=== PATIENT | female | born 1945 | race Caucasian/White ===

== ENCOUNTER 2016-08-24 09:20 | Inpatient (IN) | payer OTHER ==
[2016-08-24] MEDS ORDERED: NS 500 ML IV ONE (09:31)
--- NOTE | 2016-08-24 09:35 | EDPHY ---
General - History Smoking Status: Never smoked Narrative: CHIEF COMPLAINT: Fall, hip pain HISTORY OF PRESENT ILLNESS: Patient reports falling twice last night. She does not know the full details of this. She fell once in the kitchen but did not lose conscious. She then said she fell somehow the bathroom but does not recall the details. She is amnestic to the details of the event leading up to the 2nd fall but does know she was laying in the bathroom for several hours. Her complaint is only right hip pain. She has no head or neck pain. She has no chest pain or shortness of breath. No back pain. No injuries to the arms of the left leg. The right hip pain is moderate to severe. Improves with rest. Too painful to even move the hip while lying supine. It radiates into the thigh. No numbness or tingling. No weakness below the hip. Patient has Parkinson's disease with chronic contractures of the hips and arms. She has no recollection of have any chest pain or dizziness prior to the fall but does not entirely know for sure REVIEW OF SYSTEMS: Ten systems reviewed and are negative unless otherwise noted in the HPI PERTINENT MEDICAL HISTORY: EXAMINATION General Appearance: Alert, no distress Head: normocephalic, atraumatic. No hematomas. No Mccullough sign or raccoon eyes. Eyes: Pupils equal and round, no conjunctival pallor or injection. EOMs intact. No nystagmus. ENT, Mouth: Mucous membranes moist. Uvula midline. No erythema edema. Neck: Normal inspection, supple, non-tender. No rigidity. No meningismus. No midline tenderness. Respiratory: Lungs are clear to auscultation. No wheezing, rhonchi or crackles. Cardiovascular: Regular rate and rhythm. No murmur. Pulses intact distally in symmetrically. Gastrointestinal: Abdomen is soft and nontender Neurological: A&O, nonfocal, strength is symmetric in all limbs. Sensory intact. Skin: Warm and dry, no rash. There is ecchymosis over the right hip and posterior thigh. No lacerations or abrasions. Extremities: Contractures in all 4 limbs reportedly baseline. Range of motion of the upper extremities and left lower extremity are at baseline. Right hip is significantly tender to palpation. It is shortened and rotated. Neurovascular intact distal to the hip. Range of motion not tested on the right hip due to pain. Psychiatric: Mood and affect normal DIFFERENTIAL DIAGNOSES: Including but not limited to syncope, intracranial hemorrhage, hip fracture, hip dislocation, rhabdomyolysis MDM: 9:35 a.m. Multiple falls last night of uncertain etiology. There is no witness to this and she is on certain of the exact details of the event. She did fall at least twice that she knows of. She laid on the bathroom floor for multiple hours from last night until this morning. Her spouse was unable to get up from the floor. She is awake and alert, conversing appropriately. She has no headache. Her primary complaint is right-sided hip pain. Given the questionable circumstances, I will obtain laboratory studies including CK, EKG, CT scans of the head, cervical spine and hip. I will also obtain a chest x-ray. She is in no acute distress and does not want any pain medication at this time. 10:[address] House that there is a displaced right hip fracture by CT scan. Chronic changes noted as well. Was also notified by Dr. Dunn that the CT scans of the head and cervical spine did not reveal any acute findings. There are chronic changes as noted. 10:40 a.m. I have updated the patient regarding the positive findings of the hip fracture as well as the negative findings on the CT scans and labs. I have discussed the case with the hospitalist, and she will be admitted to Dr. Shepherd. We have paged orthopedics for consultation. 10:50 a.m. I have discussed the case with Dr. Dumont. He asked if I felt the patient would be ready to be taken to the OR today or if she would need clearance. I feel that given her only history of Parkinson's she may be cleared for surgery today. She has been kept NPO. We will keep her NPO other than small sip of water for her scheduled parkinsonian medications. Dr. Dumont will provide consultation. SUPERVISION: This patient was independently evaluated without direct examination by the attending physician. Case was discussed with attending physician. Ortho consultation Hospitalist admission (Ritchie Whitten) Medical Decision Making: The patient was evaluated and managed by the physician assistant auto center manager. I have reviewed this chart and I agree with the findings and plan of care as documented , as indicated by my signature. I am the secondary supervising physician. ( Tennille Winchester) - Objective Vital Signs: Initial Vital Signs Temperature (C) 36.8 C 04/06/17 09:20 Heart Rate 84 08/24/16 09:20 Respiratory Rate 18 08/24/16 09:20 Blood Pressure 133/71 H 08/24/16 09:20 O2 Sat (%) 96 08/24/16 09:20 O2 Delivery Mode Room Air Allergies/Adverse Reactions: Sulfa (Sulfonamide Antibiotics) Allergy (Verified 05/30/15 19:48) Home Medications: Medication Instructions Recorded Cholecalciferol Vit D3 [Vitamin D3 2,000 units PO DAILY 05/30/15 2000 units tab (OTC)] Herbals/Supplements -Info Only 1 ea PO DAILY 05/30/15 cloZAPine [Clozaril (*)] 25 mg PO BID 05/30/15 rOPINIRole HCL [Ropinirole ER] 3 mg PO BID@,12 05/30/15 Carbidopa/Levo Cr 25/100Mg 1 tab PO .X5D@08,11,14,17,21 09/19/15 [Sinemet CR 25/100 MG (*)] rOPINIRole HCL [Ropinirole ER] 2 mg PO HS 08/24/16 Laboratory Results: Laboratory Results 08/24/16 09:20 08/24/16 09:20 Medications Given: Discontinued Medications Carbidopa/Levodopa (Sinemet Cr) 1 tab PO 5XD ISMAEL Stop: 02/20/17 15:29 Last Admin: 08/25/16 05:45 Dose: Not Given Sodium Chloride (Ns) 500 mls @ 0 mls/hr IV ONCE ONE PRN Reason: Wide Open Stop: 08/24/16 09:32 Last Admin: 08/24/16 10:18 Dose: 500 mls Potassium Chloride/Dextrose/Sod Cl (D5w 1/2 Ns W/ 20 Kcl/L) 1,000 mls @ 125 mls /hr IV CONT ISMAEL Stop: 02/20/17 15:29 Last Admin: 08/24/16 22:20 Dose: 1,000 mls Ropivacaine 80 mg/ Epinephrine HCl 0.2 mg/ Ketorolac Tromethamine 30 mg/ Morphine Sulfate 10 mg/ IV Miscellaneous Supplies 42.2 mls @ 0 mls/hr IU ONCALL ONE PRN Reason: As Directed Stop: 08/24/16 18:01 Last Admin: 08/24/16 22:32 Dose: Not Given Cefazolin Sodium/Dextrose (Ancef 2 Gm (Premix)) 100 mls @ 200 mls/hr IV ONCALL ONE Stop: 08/24/16 18:29 Last Admin: 08/24/16 22:13 Dose: Not Given Cefazolin Sodium/Dextrose (Ancef 1 Gm (Premix)) 50 mls @ 200 mls/hr IV Q8H ISMAEL PRN Reason: Protocol Stop: 08/25/16 10:14 Last Admin: 08/25/16 11:00 Dose: 50 mls Sodium Chloride (Ns) 500 mls @ 1,500 mls/hr IV ONCE ONE Stop: 08/25/16 10:29 Last Admin: 08/25/16 11:19 Dose: 500 mls Sodium Chloride (Ns) 500 mls @ 0 mls/hr IV ONCE ONE PRN Reason: As Directed Stop: 08/25/16 19:31 Last Admin: 08/25/16 19:47 Dose: 500 mls Morphine Sulfate (Morphine) 2 mg IVP EDNOW ONE Stop: 08/24/16 10:42 Last Admin: 08/24/16 10:49 Dose: 2 mg Naloxone HCl (Narcan) 0.2 mg IVP ONCE ONE Stop: 08/24/16 23:46 Last Admin: 08/24/16 23:45 Dose: 0.2 mg Tramadol HCl (Ultram) 50 mg PO Q6HRS ISMAEL Stop: 02/21/17 00:00 Last Admin: 08/25/16 05:45 Dose: Not Given Departure - Departure Disposition: [facility] Acute Condition: Good
[2016-08-24 09:37] LABS: % IMMATURE GRANULYOCYTES 0.4 % (0.0-1.1); ABSOLUTE IMMATURE GRANULOCYTES 0.05 10^3/uL (0.00-0.10); ADD DIFF? NO; ADD MORPH? NO; ADD SCAN? NO; ATYPICAL LYMPHOCYTE FLAG 0 (0-99); FRAGMENT RBC FLAG 0 (0-99); HEMATOCRIT 39.4 % (38.0-47.0); LEFT SHIFT FLG 0 (0-99); LIPEMIA HEMOLYSIS FLAG 80 (0-99); MEAN CELL HEMOGLOBIN 29.6 pg (27.9-34.1); MEAN CELL VOLUME 89.7 fL (81.5-99.8); MEAN PLATELET VOLUME 10.9 fL (8.7-11.7); PLATELET CLUMPS FLAG 0 (0-99); PLATELET COUNT 176 10^3/uL (150-400); RED BLOOD CELL COUNT 4.39 10^6/uL (4.18-5.33); RED CELL DISTRIBUTION WIDTH 13.4 % (11.5-15.2)
--- NOTE | 2016-08-24 09:44 | CPEKG ---
Heart Rate: 83 RR Interval: 723 P-R Interval: 172 QRSD Interval: 88 QT Interval: 384 QTC Interval: 452 P Nikolski: 64 QRS Nikolski: 31 T Wave Nikolski: 67 EKG Severity - BORDERLINE ECG - EKG Impression: SINUS RHYTHM EKG Impression: BORDERLINE R WAVE PROGRESSION, ANTERIOR LEADS Electronically Signed By: Tennille Winchester 24-Aug-2016 15:41:17
[2016-08-24 09:49] LABS: ANION GAP 13 mEq/L (8-16); CALCIUM 9.4 mg/dL (8.5-10.4); CARBON DIOXIDE 26 mEq/l (22-31); CHLORIDE 104 mEq/L (97-110); CREATININE 0.7 mg/dL (0.6-1.0); GLOMERULAR FILTRATION RATE > 60; GLUCOSE 114 mg/dL (70-100); INR 1.1 (0.83-1.16); POTASSIUM 3.6 mEq/L (3.5-5.2); PROTIME(PATIENT) 14.1 SEC (12.0-15.0); SODIUM 143 mEq/L (134-144)
[2016-08-24 09:50] LABS: APTT 24.1 SEC (23.0-38.0)
[2016-08-24 10:00] LABS: TROPONIN I < 0.012 ng/mL (0-0.034)
--- NOTE | 2016-08-24 14:51 | PDGENHP ---
History and Physical - Chief Complaint right hip pain - History of Present Illness 71 y/o female with Parkinsons presents to ED today with right hip pain after falling yesterday. She has been Unable to bear weight since the fall. She reports severe pain in her right hip with any kind of movement. Her reports that she fell last night in the kitchen and could not stand up on her own. Her states that she was conscious immediately after the fall when he found her, he does not believe that she hit her head . Patient does not recall the event. Later that evening her states he had to carry her to and from the bathroom and that she had 1 episode of bowel incontinence. Initially she complained of full body pain, this morning it is isolated to the right hip. Her brought her to the ED do to worsening Pain in her hip and. She uses a walker for mobility. She denies numbness or weakness in her right leg. History Information - Allergies/Home Medication List Allergies/Adverse Reactions: Sulfa (Sulfonamide Antibiotics) Allergy (Verified 05/30/15 19:48) Home Medications: Cholecalciferol Vit D3 [Vitamin D3 2000 units tab (OTC)] 2,000 units PO DAILY [Last Taken 08/23/16] Herbals/Supplements -Info Only 1 ea PO DAILY 05/30/15 [Last Taken Unknown] cloZAPine [Clozaril (*)] 25 mg PO BID 05/30/15 [Last Taken 08/24/16] rOPINIRole HCL [Ropinirole ER] 3 mg PO BID@09,12 05/30/15 [Last Taken 08/24/16 09:00] Carbidopa/Levo Cr 25/100Mg [Sinemet CR 25/100 MG (*)] 1 tab PO .X5D@08,11,14,17, 21 09/19/15 [Last Taken 08/24/16 08:00] rOPINIRole HCL [Ropinirole ER] 2 mg PO HS 08/24/16 [Last Taken 08/23/16] I have personally reviewed and updated: family history, medical history, social history, surgical history - Past Medical History Additional medical history: Parkinsons Disease on Clozaril for hallucinations, orthostatic hypotension, osteoporosis - Surgical History Reports: hysterectomy (Total) Additional surgical history: knee arthroscopy - Social History Smoking Status: Never smoked Alcohol Use: Occasionally Drug Use: None Review of Systems ROS: 10pt was reviewed & negative except for what was stated in HPI & below Genitourinary: Reports: frequency, urgency. Denies: pain Physical Exam Temp Pulse Resp BP Pulse Ox 36.6 C 86 16 138/78 H 94 08/24/16 12:35 08/24/16 12:35 08/24/16 12:35 08/24/16 12:35 08/24/16 12:35 Constitutional: no apparent distress, appears nourished, not in pain Eyes: PERRL, anicteric sclera, EOMI Ears, Nose, Mouth, Throat: moist mucous membranes, hearing normal, ears appear normal, no oral mucosal ulcers Cardiovascular: regular rate and rhythym, no murmur, rub, or gallop, No edema Respiratory: no respiratory distress, no rales or rhonchi, clear to auscultation Gastrointestinal: normoactive bowel sounds, soft, non-tender abdomen, no palpable masses, No guarding, No rebound Genitourinary: no bladder fullness, no bladder tenderness Skin: warm, normal color, no rashes or abrasions, no fluctuance, no induration, No mottled Musculoskeletal: other ( right lower extremity is held in external rotation) Neurologic: AAOx3, CN II-XII Intact, No facial droop Psychiatric: interacting appropriately, not anxious, not encephalopathic, thought process linear Lab Data & Imaging Review 08/24/16 09:20 08/24/16 09:20 WBC 11.26 10^3/uL (3.80-9.50) H 08/24/16 09:20 RBC 4.39 10^6/uL (4.18-5.33) 08/24/16 09:20 Hgb 13.0 g/dL (12.6-16.3) 08/24/16 09:20 Hct 39.4 % (38.0-47.0) 08/24/16 09:20 MCV 89.7 fL (81.5-99.8) 08/24/16 09:20 MCH 29.6 pg (27.9-34.1) 08/24/16 09:20 MCHC 33.0 g/dL (32.4-36.7) 08/24/16 09:20 RDW 13.4 % (11.5-15.2) 08/24/16 09:20 Plt Count 176 10^3/uL (150-400) 08/24/16 09:20 MPV 10.9 fL (8.7-11.7) 08/24/16 09:20 Neut % (Auto) 85.4 % (39.3-74.2) H 08/24/16 09:20 Lymph % (Auto) 8.3 % (15.0-45.0) L 08/24/16 09:20 Schuyler % (Auto) 4.7 % (4.5-13.0) 08/24/16 09:20 Eos % (Auto) 0.8 % (0.6-7.6) 08/24/16 09:20 Baso % (Auto) 0.4 % (0.3-1.7) 08/24/16 09:20 Nucleat RBC Rel Count 0.0 % (0.0-0.2) 08/24/16 09:20 Absolute Neuts (auto) 9.61 10^3/uL (1.70-6.50) H 08/24/16 09:20 Absolute Lymphs (auto) 0.93 10^3/uL (1.00-3.00) L 08/24/16 09:20 Absolute Monos (auto) 0.53 10^3/uL (0.30-0.80) 08/24/16 09:20 Absolute Eos (auto) 0.09 10^3/uL (0.03-0.40) 08/24/16 09:20 Absolute Basos (auto) 0.05 10^3/uL (0.02-0.10) 08/24/16 09:20 Absolute Nucleated RBC 0.00 10^3/uL (0-0.01) 08/24/16 09:20 Immature Gran % 0.4 % (0.0-1.1) 08/24/16 09:20 Immature Gran # 0.05 10^3/uL (0.00-0.10) 08/24/16 09:20 PT 14.1 SEC (12.0-15.0) 08/24/16 09:20 INR 1.10 (0.83-1.16) 08/24/16 09:20 APTT 24.1 SEC (23.0-38.0) 08/24/16 09:20 Sodium 143 mEq/L (134-144) 08/24/16 09:20 Potassium 3.6 mEq/L (3.5-5.2) 08/24/16 09:20 Chloride 104 mEq/L (97-110) 08/24/16 09:20 Carbon Dioxide 26 mEq/l (22-31) 08/24/16 09:20 Anion Gap 13 mEq/L (8-16) 08/24/16 09:20 BUN 11 mg/dL (7-23) 08/24/16 09:20 Creatinine 0.7 mg/dL (0.6-1.0) 08/24/16 09:20 Estimated GFR > 60 08/24/16 09:20 Glucose 114 mg/dL (70-100) H 08/24/16 09:20 Calcium 9.4 mg/dL (8.5-10.4) 08/24/16 09:20 Creatine Kinase 156 IU/L (0-156) 08/24/16 09:20 Troponin I < 0.012 ng/mL (0-0.034) 08/24/16 09:20 Imaging Review: hip ct reviewed Impression: Displaced right femoral neck fracture. This has a subacute appearance with loss of a lot of the bone in the femoral neck with sclerosis and irregularity. Visualized and Interpreted Chest x-ray results: Yes Chest X-Ray results: no infiltrate, normal Visualized and Interpreted EKG results: Yes EKG Interpretation: Positive for: normal sinsus rhythm (83 bpm) Assessment & Plan Assessment: This is a 71 y/o female with history of Parkinson's Disease presenting with R hip pain after fall. # Right femoral neck fracture - Dr. Dumont plans to take the patient to the operating room later today # urinary frequency and urgency in the setting of Parkinson's disease and recent fall - obtain urinalysis # Parkinson's disease - Follow up with Dr. Jennifer Suárez at [facility] for disease management and neurological evaluation as pt has history of auditory and visual hallucinations that may have contributed to her fall. # Osteoporosis - Monitor bone density, encourage use of walker for mobility, follow up with PCP Dr. Bonnie Zepeda # Elevated WBC - obtain UA and monitor for signs of infection admitted inpatient status given hip fracture and need for surgery. I suspect she will need placement in a [facility] facility for rehabilitation postoperatively. She is high risk for VTE and will start low molecular weight heparin postoperatively.
[2016-08-24] MEDS ORDERED: oxyCODONE IR 5 MG TAB PO PRN (15:23)
[2016-08-24] MEDS ORDERED: ONDANSETRON 4 MG/2 ML VIAL IVP PRN (15:23)
[2016-08-24] MEDS ORDERED: CARBIDOPA/LEVO CR 25 MG/100 MG TAB PO SCH (15:30)
[2016-08-24] MEDS: D5W 1/2 NS W/ 20 KCl/L 1,000 ML IV SCH ×2 (16:30→22:20)
[2016-08-24] MEDS ORDERED: CALCIUM CHLORIDE 1 GM/10 ML INJ ONE (16:57)
[2016-08-24] MEDS ORDERED: BUPIVACAINE/EPI 0.5% 30 ML SDV ONE (16:57)
[2016-08-24] MEDS ORDERED: THROMBIN (BOVINE) 5,000 UNIT VIAL TP ONE (16:57)
[2016-08-24] MEDS ORDERED: POLYMYXIN B SULFATE 500,000 UNIT/10 ML SYR IRR ONE (16:58)
[2016-08-24] MEDS ORDERED: BACITRACIN 50,000 UNITS/10 ML SYR IRR ONE (16:58)
[2016-08-24] MEDS ORDERED: PROPOFOL 200 MG/20 ML VIAL ONE ×2 (17:02→18:34)
[2016-08-24] MEDS ORDERED: fentaNYL 100 MCG/2 ML INJ ONE ×2 (17:03→18:43)
[2016-08-24 17:20] LABS: COLOR YELLOW; LEUKOCYTE ESTERASE,URINE NEGATIVE (NEGATIVE); NITRITE,URINE NEGATIVE (NEGATIVE)
[2016-08-24] MEDS ORDERED: DEXAMETHASONE 4 MG/ML VIAL ONE (17:44)
[2016-08-24] MEDS ORDERED: CEFAZOLIN 2 GM/DEXTROSE/100 ML BAG IV ONE (17:44)
[2016-08-24] MEDS ORDERED: PHENYLEPHRINE 10 MG/ML SDV ONE (17:50)
[2016-08-24] MEDS ORDERED: ROPI/epiNEPH/KETOROLAC/morphINE JOINT COCKTAIL IU ONE (18:00)
[2016-08-24] MEDS ORDERED: ceFAZolin 2 GM/DEXTROSE 100 ML IV ONE (18:00)
[2016-08-24] MEDS ORDERED: ONDANSETRON 4 MG/2 ML VIAL ONE (19:03)
[2016-08-24] MEDS ORDERED: TEMAZEPAM 15 MG CAP PO PRN (19:44)
--- NOTE | 2016-08-24 19:44 | POSTOPPROG ---
Post Op Note Date of Operation: 08/24/16 Surgeon: Cami Dumont Anesthesiologist: hermila Anesthesia: LMA Pre-op Diagnosis: r hip fx Procedure: r hip anton-arthroplasty with fluoro Inf/Abcess present in the surg proc area at time of surgery?: No Depth: Deep Incisional (Fascial) EBL: 100-500
[2016-08-24] MEDS ORDERED: TAPENTADOL HCL 50 MG TAB PO PRN (19:47)
[2016-08-24] MEDS ORDERED: ROPINIROLE HCL 2 MG PO SCH (21:00)
--- NOTE | 2016-08-24 21:07 | GOP ---
[f rep st] OPERATIVE REPORT DATE OF OPERATION: 08/24/2016 SURGEON: Cami Dumont MD ANESTHESIA: By LMA. PREOPERATIVE DIAGNOSIS: Right femoral neck fracture. POSTOPERATIVE DIAGNOSIS: Right femoral neck fracture. PROCEDURE PERFORMED: Right hip hemiarthroplasty with fluoroscopy. FINDINGS: INDICATIONS: A 71-year-old female who had fallen at home. She was seen in the emergency room, diag nosed with a femoral neck fracture. She was brought to the operating room as soon as she was medica lly cleared. DESCRIPTION OF PROCEDURE: Patient brought to the operating room after the right side had been ident ified as correct side by the patient, nurse, physician. Once in the operating room, she was placed under general anesthesia using an LMA. Once asleep, she was placed on a traction table with a well- padded peroneal post. Both legs placed in appropriate leg portillo. Fluoroscopy was used to ensure p keven positioning of the pelvis. Once the pelvis had been properly positioned, the arch table was l ocked into place against the floor. The right hip and flank were then sterilely prepped and draped in the usual fashion using ESSENCE/solution. Once prepped and draped, incision was made 2 cm lateral an d inferior to the ASIS and extending in a 15 degree posterior direction with sharp dissection anita d down through skin, subcutaneous layers with bleeding controlled using electrocautery. Dissection was down onto the fascia overlying the TFL, which was incised in line with its fibers, wi th the muscle belly retracted laterally. Dissection around the base of the sheath revealed the circ umflex vessels which were cauterized and ligated. Deeper dissection was carried down onto the fat o verlying the capsule. The hip capsule was removed anteriorly. An oscillating saw was used to compl ete cut through the femoral neck proximal to the fracture site itself. The napkin ring of bone was removed. The leg was externally rotated 40 degrees and a corkscrew placed within the femoral head w hich was removed and measured to be 46 mm in diameter. Therefore, 46 and 47 trials were placed with in the acetabulum with a 46 seemed to fit best. Attention was then turned to the proximal femur with sharp dissection carried off in the capsule of the anterior and superior portion of the femoral neck. Once it had been adequately released, the le g was placed in extension and abduction. Curette was used to remove medullary bone and a rongeur wa s used to remove the bone on the superior portion of the femoral neck. Multiple broaches were place d in the femoral proximal femur. Noted a size 5 seemed to fit best. Trial reduction was performed. Noted to have adequate fill of the femur. Therefore, the hip was re -dislocated, placed in extension and adduction, and a size 5 Accolade II 127 degree femoral stem fro m [employer] was put into place and noted to fit securely. A trial reduction was again performed and n oted to have good leg lengths and therefore the hip was re-dislocated, placed in extension and adduc tion. The trunnion was cleaned and a 26+ 0 head was placed onto the femoral component with a 46 bip olar component placed onto the femoral head. Hip was then re dislocated. Pictures were again taken with fluoroscopy to ensure proper placement. The wound was then thoroughly irrigated with antibiotic solution. Joint cocktail was injected into the capsule surrounding the hip. Plasma gel was placed into the intra-articular portion. The fasc ia overlying the TFL was then closed using 0 Vicryl suture in a simple whip stitch with plasma gel p laced within the sheath. 0 Vicryl and 2-0 Vicryl suture were used for the skin. 30 cc of Marcaine was infused around the skin and the subcutaneous layers, and russell were used to close the skin. The wound was dressed with Xeroform, 4 x 4, and Tegaderm. The patient was completely undraped in e operating room. She had both legs placed in appropriate leg portillo. Leg lengths were noted to be equal. The peroneal post was removed. She was then transferred onto a bed. She was woken up, ext ubated, transferred to the recovery room in good condition. /[id number]/MODL
[2016-08-24] MEDS: cloZAPine 25 MG TAB PO SCH (22:32)
[2016-08-24] MEDS: CARBIDOPA/LEVO CR 25 MG/100 MG TAB PO SCH (22:32)
[2016-08-24] MEDS: (Ropinirole Hcl [Ropinirole Er] 2 MG) PO SCH (22:32)
[2016-08-24] MEDS ORDERED: NALOXONE HCL 0.4 MG/ML INJ ONE (23:41)
[2016-08-24] MEDS ORDERED: NALOXONE HCL 0.4 MG/ML INJ IVP ONE (23:45)
[2016-08-25] MEDS: traMADol 50 MG TAB PO SCH ×6 (00:17→19:48)
[2016-08-25] MEDS: CARBIDOPA/LEVO CR 25 MG/100 MG TAB PO SCH ×6 (05:45→19:50)
[2016-08-25 08:06] LABS: % IMMATURE GRANULYOCYTES 0.6 % (0.0-1.1); ABSOLUTE IMMATURE GRANULOCYTES 0.07 10^3/uL (0.00-0.10); ADD DIFF? NO; ADD MORPH? NO; ADD SCAN? NO; ATYPICAL LYMPHOCYTE FLAG 0 (0-99); FRAGMENT RBC FLAG 0 (0-99); HEMATOCRIT 33.1 % (38.0-47.0); HEMOGLOBIN 10.6 g/dL (12.6-16.3); LEFT SHIFT FLG 0 (0-99); LIPEMIA HEMOLYSIS FLAG 80 (0-99); MEAN CELL HEMOGLOBIN 30.2 pg (27.9-34.1); MEAN CELL VOLUME 94.3 fL (81.5-99.8); MEAN PLATELET VOLUME 10.9 fL (8.7-11.7); PLATELET CLUMPS FLAG 0 (0-99); PLATELET COUNT 129 10^3/uL (150-400); RED BLOOD CELL COUNT 3.51 10^6/uL (4.18-5.33); RED CELL DISTRIBUTION WIDTH 13.8 % (11.5-15.2)
[2016-08-25] MEDS: cloZAPine 25 MG TAB PO SCH ×2 (08:15→19:46)
[2016-08-25] MEDS: CHOLECALCIFEROL VIT D3 2,000 UNITS TAB/CAP PO SCH (08:15)
[2016-08-25] MEDS: ENOXAPARIN 40 MG/0.4 ML SYR SC SCH (08:15)
[2016-08-25 08:29] LABS: ANION GAP 4 mEq/L (8-16); CALCIUM 8.7 mg/dL (8.5-10.4); CARBON DIOXIDE 27 mEq/l (22-31); CHLORIDE 108 mEq/L (97-110); CREATININE 0.6 mg/dL (0.6-1.0); GLOMERULAR FILTRATION RATE > 60; GLUCOSE 128 mg/dL (70-100); POTASSIUM 4.8 mEq/L (3.5-5.2); SODIUM 139 mEq/L (134-144)
[2016-08-25] MEDS: (Ropinirole Hcl [Ropinirole Er] 2 MG) PO SCH ×3 (08:57→19:46)
[2016-08-25] MEDS ORDERED: ROPINIROLE HCL 3 MG PO SCH (09:00)
[2016-08-25] MEDS ORDERED: NS 500 ML IV ONE ×2 (10:10→19:30)
--- NOTE | 2016-08-25 13:54 | HOSPPROG ---
Hospitalist Progress Note Assessment/Plan: Assessment: This is a 71 y/o female with history of Parkinson's Disease presenting with R hip pain after fall. # Right femoral neck fracture pod #[address] Dumont - cont post op care per ortho -recommend tylenol for pain and ultram for breakthrough #hypotension and oliguria -fluid bolus and monitor urine output # urinary frequency and urgency in the setting of Parkinson's disease and recent fall -ua without signs of infection # Parkinson's disease - Follow up with Dr. Jennifer Suárez at [facility] for disease management and neurological evaluation as pt has history of auditory and visual hallucinations that may have contributed to her fall. # Osteoporosis - Monitor bone density, encourage use of walker for mobility, follow up with PCP Dr. Bonnie Zepeda # Elevated WBC without signs of obvious acute infection continue inpatient care inpatient rehab consult ordered l[facility]wh for dvt prophylaxis Subjective: 2/10 pain. not urinating. otherwise feels well Objective: Vital Signs Temp Pulse Resp BP Pulse Ox 36.5 C 89 16 94/53 L 96 08/25/16 08:00 08/25/16 08:54 08/25/16 08:00 08/25/16 08:54 08/25/16 08:54 Laboratory Results 08/25/16 07:55 08/25/16 07:55 08/24/16 08/25/16 08/26/16 05:59 05:59 05:59 Intake Total 1975 906 Output Total 1251 Balance 724 906 PT 14.1 SEC (12.0-15.0) 08/24/16 09:20 INR 1.10 (0.83-1.16) 08/24/16 09:20 - Physical Exam Constitutional: no apparent distress, appears nourished, not in pain Ears, Nose, Mouth, Throat: moist mucous membranes, hearing normal, ears appear normal, no oral mucosal ulcers Cardiovascular: regular rate and rhythym, no murmur, rub, or gallop Respiratory: no respiratory distress, no rales or rhonchi, clear to auscultation Skin: no rashes or abrasions, no fluctuance, no induration ICD10 Worksheet Patient Problems: Problems Problem Status Onset Chronic Disease Mgmt/Transitional Care Acute
--- NOTE | 2016-08-25 14:04 | GCON ---
[f rep st] CONSULTATION ORTHOPEDIC SURGERY CONSULTATION DATE OF CONSULTATION: 08/24/2016 CHIEF COMPLAINT: Right hip pain. HISTORY OF PRESENT ILLNESS: The patient is a 71-year-old female with known Parkinson disease who fell at home. Had pain at the hip. Was seen in the emergency room, diagnosed with a right femoral neck fracture via CT exam. She was admitted for evaluation and fixation. PHYSICAL EXAMINATION: The patient is grossly neurologically intact to the dorsal, lateral and plantar portions of the foot, with pain to any motion across the right lower extremity. She holds her knees and hips in a flexed position and she is leaning toward her left side. Does not want to move her legs. IMAGING: CT exam revealed a displaced femoral neck fracture of the right hip. ASSESSMENT AND PLAN: The patient is status post right femoral neck fracture. She will be brought to the operating room as soon as time is available to undergo a hemiarthroplasty. /[id number]/MODL MTDD
--- NOTE | 2016-08-25 16:18 | SOAPPROG ---
SOAP Progress Note Assessment/Plan: Assessment: POD 1 s/p hemiarthroplasty Plan: - WBAT, walker recommended all times for stability - Smith today for urinary retention - stable, can d/c from ortho perspective likely tomorrow 08/25/16 16:15 Subjective: Doing well, some sedation from pain meds, better this afternoon, able to tolerate full WB today Objective: Vital Signs Temp Pulse Resp BP Pulse Ox 36.5 C 89 16 94/53 L 96 08/25/16 08:00 08/25/16 08:54 08/25/16 08:00 08/25/16 08:54 08/25/16 08:54 Laboratory Results 08/25/16 07:55 08/25/16 07:55 08/24/16 08/25/16 08/26/16 05:59 05:59 05:59 Intake Total 1975 906 Output Total 1251 Balance 724 906 PT 14.1 SEC (12.0-15.0) 08/24/16 09:20 INR 1.10 (0.83-1.16) 08/24/16 09:20 Dressing small amt of drainage, calf NT, neg Homman's, NVI distally, compartments soft - Time Spent With Patient Time Spent With Patient: 20 m - Pending Discharge Pending Discharge Within 48 Hours: No ICD10 Worksheet Patient Problems: Problems Problem Status Onset Chronic Disease Mgmt/Transitional Care Acute
[2016-08-25] MEDS: ACETAMINOPHEN 325 MG TAB PO PRN (18:37)
[2016-08-26] MEDS: traMADol 50 MG TAB PO SCH ×5 (02:18→23:33)
[2016-08-26] MEDS ORDERED: NS 500 ML IV ONE (04:45)
[2016-08-26] MEDS: CHOLECALCIFEROL VIT D3 2,000 UNITS TAB/CAP PO SCH (08:01)
[2016-08-26] MEDS: cloZAPine 25 MG TAB PO SCH ×2 (08:01→21:38)
[2016-08-26] MEDS: CARBIDOPA/LEVO CR 25 MG/100 MG TAB PO SCH ×5 (08:01→21:39)
[2016-08-26] MEDS: (Ropinirole Hcl [Ropinirole Er] 2 MG) PO SCH ×3 (08:01→21:41)
[2016-08-26] MEDS: ENOXAPARIN 40 MG/0.4 ML SYR SC SCH (08:02)
[2016-08-26] MEDS: ACETAMINOPHEN 325 MG TAB PO PRN ×2 (08:04→17:31)
[2016-08-26] MEDS ORDERED: BISACODYL 10 MG SUPP PR PRN (09:23)
[2016-08-26] MEDS ORDERED: MAGNESIUM HYDROXIDE 30 ML UDCUP PO PRN (09:23)
[2016-08-26] MEDS ORDERED: LACTULOSE 20 GM/30 ML UDCUP PO PRN (09:23)
[2016-08-26] MEDS ORDERED: POLYETHYLENE GLYCOL 3350 17 GM PKT PO PRN (09:23)
--- NOTE | 2016-08-26 09:23 | HOSPPROG ---
Hospitalist Progress Note Assessment/Plan: Assessment: This is a 71 y/o female with history of Parkinson's Disease presenting with R hip pain after fall. # Right femoral neck fracture pod #[address] Dumont - cont post op care per ortho -recommend tylenol for pain and ultram for breakthrough #hypotension and oliguria (resolved) with 1L fluid Boluses 4/7 -continue to monitor #constipation -start bowel protocol # urinary frequency and urgency in the setting of Parkinson's disease and recent fall -ua without signs of infection -remove leahy # Parkinson's disease - Follow up with Dr. Jennifer Suárez at [facility] for disease management and neurological evaluation as pt has history of auditory and visual hallucinations that may have contributed to her fall. # Osteoporosis - Monitor bone density, encourage use of walker for mobility, follow up with PCP Dr. Bonnie Zepeda # Elevated WBC without signs of obvious acute infection continue inpatient care inpatient rehab consult ordered [facility] for dvt prophylaxis Subjective: continues to have pain in right hip. ultram caused over sedation. no fevers or chills Objective: Vital Signs Temp Pulse Resp BP Pulse Ox 36.9 C 80 15 114/60 94 08/26/16 07:24 08/26/16 07:24 08/26/16 07:24 08/26/16 07:24 08/26/16 08:13 Laboratory Results 08/25/16 07:55 08/25/16 07:55 08/25/16 08/26/16 08/27/16 05:59 05:59 05:59 Intake Total 1975 1909 Output Total 1251 1100 Balance 724 809 PT 14.1 SEC (12.0-15.0) 08/24/16 09:20 INR 1.10 (0.83-1.16) 08/24/16 09:20 - Physical Exam Constitutional: chronically ill appearing Cardiovascular: regular rate and rhythym, no murmur, rub, or gallop Respiratory: no respiratory distress, no rales or rhonchi, clear to auscultation Gastrointestinal: normoactive bowel sounds, soft, non-tender abdomen, no palpable masses Genitourinary: leahy in urethra ICD10 Worksheet Patient Problems: Problems Problem Status Onset Chronic Disease Mgmt/Transitional Care Acute
--- NOTE | 2016-08-26 13:22 | SOAPPROG ---
SOAP Progress Note Assessment/Plan: Assessment: Plan: 08/26/16 13:22 states she's very tired today states she's neen OOB to chair and walked around room dressing C&D with foot NVI cont PT Objective: Vital Signs Temp Pulse Resp BP Pulse Ox 36.9 C 81 15 112/59 L 94 08/26/16 11:24 08/26/16 11:24 08/26/16 11:24 08/26/16 11:24 08/26/16 11:24 Laboratory Results 08/25/16 07:55 08/25/16 07:55 08/25/16 08/26/16 08/27/16 05:59 05:59 05:59 Intake Total 1975 1909 Output Total 1251 1100 Balance 724 809 PT 14.1 SEC (12.0-15.0) 08/24/16 09:20 INR 1.10 (0.83-1.16) 08/24/16 09:20 ICD10 Worksheet Patient Problems: Problems Problem Status Onset Chronic Disease Mgmt/Transitional Care Acute
[2016-08-26] MEDS: SENNOSIDES/DOCUSATE SODIUM TAB PO SCH (21:43)
[2016-08-27 00:52] LABS: COLOR PALE YELLOW; LEUKOCYTE ESTERASE,URINE NEGATIVE (NEGATIVE); NITRITE,URINE NEGATIVE (NEGATIVE)
[2016-08-27 00:58] LABS: MUCUS TRACE /lpf (NONE-1+)
[2016-08-27 04:46] LABS: % IMMATURE GRANULYOCYTES 0.5 % (0.0-1.1); ABSOLUTE IMMATURE GRANULOCYTES 0.04 10^3/uL (0.00-0.10); ADD DIFF? NO; ADD MORPH? NO; ADD SCAN? NO; ATYPICAL LYMPHOCYTE FLAG 0 (0-99); FRAGMENT RBC FLAG 0 (0-99); HEMATOCRIT 27.6 % (38.0-47.0); HEMOGLOBIN 8.9 g/dL (12.6-16.3); LEFT SHIFT FLG 0 (0-99); LIPEMIA HEMOLYSIS FLAG 80 (0-99); MEAN CELL HEMOGLOBIN 29.5 pg (27.9-34.1); MEAN CELL HEMOGLOBIN CONCENTR. 32.2 g/dL (32.4-36.7); MEAN CELL VOLUME 91.4 fL (81.5-99.8); MEAN PLATELET VOLUME 10.6 fL (8.7-11.7); PLATELET CLUMPS FLAG 0 (0-99); PLATELET COUNT 140 10^3/uL (150-400); RED BLOOD CELL COUNT 3.02 10^6/uL (4.18-5.33); RED CELL DISTRIBUTION WIDTH 13.3 % (11.5-15.2)
[2016-08-27 05:19] LABS: ANION GAP 5 mEq/L (8-16); CALCIUM 8.7 mg/dL (8.5-10.4); CARBON DIOXIDE 26 mEq/l (22-31); CHLORIDE 110 mEq/L (97-110); CREATININE 0.6 mg/dL (0.6-1.0); GLOMERULAR FILTRATION RATE > 60; GLUCOSE 101 mg/dL (70-100); POTASSIUM 3.8 mEq/L (3.5-5.2); SODIUM 141 mEq/L (134-144)
[2016-08-27] MEDS: traMADol 50 MG TAB PO SCH ×4 (05:20→23:09)
[2016-08-27] MEDS: CARBIDOPA/LEVO CR 25 MG/100 MG TAB PO SCH ×5 (08:27→20:49)
[2016-08-27] MEDS: CHOLECALCIFEROL VIT D3 2,000 UNITS TAB/CAP PO SCH (08:27)
[2016-08-27] MEDS: cloZAPine 25 MG TAB PO SCH ×2 (08:27→20:49)
[2016-08-27] MEDS: ENOXAPARIN 40 MG/0.4 ML SYR SC SCH (08:29)
[2016-08-27] MEDS: ACETAMINOPHEN 325 MG TAB PO PRN ×2 (09:44→17:24)
[2016-08-27] MEDS: (Ropinirole Hcl [Ropinirole Er] 2 MG) PO SCH ×3 (09:45→20:49)
[2016-08-27] MEDS: SENNOSIDES/DOCUSATE SODIUM TAB PO SCH ×2 (09:50→20:50)
--- NOTE | 2016-08-27 09:59 | SOAPPROG ---
SOAP Progress Note Assessment/Plan: Assessment: Plan: 08/26/16 13:22 states she's very tired today states she's neen OOB to chair and walked around room dressing C&D with foot NVI cont PT Subjective: states she's still tired dressing C&D emphasize Nucynta cont PT Objective: Vital Signs Temp Pulse Resp BP Pulse Ox 36.6 C 95 14 138/70 H 90 L 08/27/16 08:00 08/27/16 08:00 08/27/16 08:00 08/27/16 08:00 08/27/16 08:00 Laboratory Results 08/27/16 04:37 08/27/16 04:37 08/26/16 08/27/16 08/28/16 05:59 05:59 05:59 Intake Total 1909 900 Output Total 1100 800 400 Balance 809 100 -400 PT 14.1 SEC (12.0-15.0) 08/24/16 09:20 INR 1.10 (0.83-1.16) 08/24/16 09:20 ICD10 Worksheet Patient Problems: Problems Problem Status Onset Chronic Disease Mgmt/Transitional Care Acute
--- NOTE | 2016-08-27 11:24 | HOSPPROG ---
Hospitalist Progress Note Assessment/Plan: Assessment: This is a 71 y/o female with history of Parkinson's Disease presenting with R hip pain after fall. # Right femoral neck fracture pod #[address] Dumont - cont post op care per ortho -recommend tylenol for pain and ultram for breakthrough #lt hand numbness suspect nerve compression from laying in bed -cont to monitor #hypotension and oliguria (resolved) with 1L fluid Boluses 4/7 -continue to monitor #constipation now with diarrhea -hold bowel protocol # urinary frequency and urgency in the setting of Parkinson's disease and recent fall -ua without signs of infection -remove leahy # Parkinson's disease - Follow up with Dr. Jennifer Suárez at [facility] for disease management and neurological evaluation as pt has history of auditory and visual hallucinations that may have contributed to her fall. # Osteoporosis - Monitor bone density, encourage use of walker for mobility, follow up with PCP Dr. Bonnie Zepeda # Elevated WBC without signs of obvious acute infection continue inpatient care inpatient rehab consult ordered [facility] for dvt prophylaxis Subjective: did not sleep well last night due to pain in her hip. no chest pain or sob. no fevers or chills. reports numbness in left hand Objective: Vital Signs Temp Pulse Resp BP Pulse Ox 36.6 C 95 14 138/70 H 90 L 08/27/16 08:00 08/27/16 08:00 08/27/16 08:00 08/27/16 08:00 08/27/16 08:00 Laboratory Results 08/27/16 04:37 08/27/16 04:37 08/26/16 08/27/16 08/28/16 05:59 05:59 05:59 Intake Total 1909 900 Output Total 1100 800 400 Balance 809 100 -400 PT 14.1 SEC (12.0-15.0) 08/24/16 09:20 INR 1.10 (0.83-1.16) 08/24/16 09:20 - Physical Exam Constitutional: no apparent distress, appears nourished, not in pain Cardiovascular: regular rate and rhythym, no murmur, rub, or gallop Respiratory: no respiratory distress, no rales or rhonchi, clear to auscultation Skin: no rashes or abrasions, no fluctuance, no induration Musculoskeletal: other (left wrist without signs of infection 2+radial pulse cr< 2 sec) ICD10 Worksheet Patient Problems: Problems Problem Status Onset Chronic Disease Mgmt/Transitional Care Acute
[2016-08-28] MEDS: ACETAMINOPHEN 325 MG TAB PO PRN ×2 (01:35→08:51)
[2016-08-28] MEDS: traMADol 50 MG TAB PO SCH ×2 (04:46→13:55)
[2016-08-28 07:02] VITALS: BP 127/65; PULSE 79; RESP 16; TEMP 98.4; O2SAT 93
[2016-08-28] MEDS: SENNOSIDES/DOCUSATE SODIUM TAB PO SCH ×2 (08:51→09:00)
[2016-08-28] MEDS: CARBIDOPA/LEVO CR 25 MG/100 MG TAB PO SCH ×3 (08:52→14:12)
[2016-08-28] MEDS: cloZAPine 25 MG TAB PO SCH (08:52)
[2016-08-28] MEDS: (Ropinirole Hcl [Ropinirole Er] 2 MG) PO SCH ×2 (08:52→11:53)
[2016-08-28] MEDS: ENOXAPARIN 40 MG/0.4 ML SYR SC SCH (08:52)
[2016-08-28] MEDS: CHOLECALCIFEROL VIT D3 2,000 UNITS TAB/CAP PO SCH (08:52)
--- NOTE | 2016-08-28 12:22 | SOAPPROG ---
SOAP Progress Note Assessment/Plan: Assessment: POD 1 s/p hemiarthroplasty Plan: - WBAT, walker recommended all times for stability - stable, can d/c from ortho perspective 08/25/16 16:15 08/28/16 12:21 Subjective: Doing well overall, c/o of tiredness, not sleeping well secondary to pain, but improving Objective: Vital Signs Temp Pulse Resp BP Pulse Ox 36.9 C 79 16 127/65 H 93 08/28/16 07:01 08/28/16 07:01 08/28/16 07:01 08/28/16 07:01 08/28/16 07:01 Laboratory Results 08/27/16 04:37 08/27/16 04:37 08/27/16 08/28/16 08/29/16 05:59 05:59 05:59 Intake Total 900 250 Output Total 800 850 250 Balance 100 -600 -250 PT 14.1 SEC (12.0-15.0) 08/24/16 09:20 INR 1.10 (0.83-1.16) 08/24/16 09:20 Dressing clean/dry, compartments soft, calf non-tender, NVI - Time Spent With Patient Time Spent With Patient: 5 min - Pending Discharge Pending Discharge Within 24 Hours: No Pending Discharge Within 48 Hours: Yes Pending Discharge Date: 08/30/16 Pending Discharge Time: 11:00 ICD10 Worksheet Patient Problems: Problems Problem Status Onset Chronic Disease [facility]/Transitional Care Acute
--- NOTE | 2016-08-28 13:00 | HOSPPROG ---
Hospitalist Progress Note Assessment/Plan: Patient is a 71-year-old female who sustained a fall and had a right femoral neck fracture. Today is my 1st encounter with the patient chart reviewed. Right femoral neck fracture postop day [address] Dumont weight-bearing as tolerated on Tylenol and Ultram for pain left hand numbness likely from lying on bed and has some nerve compression now in the right hand hypotension with associated oliguria resolved with fluids constipation, now having diarrhea bowel protocol urinary frequency and urgency (none further) UA shows no infectious etiology Smith removed Parkinson's disease further follow up with Dr. Jennifer Suárez @ [facility] of disease mgmt/ pt has hx of auditory/visual hallucinations might of contributed to her fall per her , she has been started on a new med to help with the hallucinations Anemia post op setting/ will have this monitored Osteoporosis f/u with Dr Bonnie Zepeda recommending bone density Leukocytosis resolved Plan: to IP rehab Subjective: Courtney has no complaints/ except for feeling more tired. Objective: Vital Signs Temp Pulse Resp BP Pulse Ox 36.9 C 79 16 127/65 H 93 08/28/16 07:01 08/28/16 07:01 08/28/16 07:01 08/28/16 07:01 08/28/16 07:01 Laboratory Results 08/27/16 04:37 08/27/16 04:37 08/27/16 08/28/16 08/29/16 05:59 05:59 05:59 Intake Total 900 250 Output Total 800 850 250 Balance 100 -600 -250 PT 14.1 SEC (12.0-15.0) 08/24/16 09:20 INR 1.10 (0.83-1.16) 08/24/16 09:20 - Physical Exam Constitutional: no apparent distress, other (thin) Eyes: PERRL Ears, Nose, Mouth, Throat: hearing normal Cardiovascular: regular rate and rhythym Respiratory: no respiratory distress Gastrointestinal: normoactive bowel sounds Skin: warm, normal color, other (right hip with swelling) Musculoskeletal: no muscle tenderness Neurologic: AAOx3 Psychiatric: interacting appropriately, not anxious, not encephalopathic ICD10 Worksheet Patient Problems: Problems Problem Status Onset Chronic Disease Mgmt/Transitional Care Acute
--- NOTE | 2016-08-28 13:18 | PDIAF ---
- Diagnosis Diagnosis: r femoral neck fx s/p hemiathroplasty, parkinsons Code Status: Do Not Resuscitate - Medication Management Discharge Medications: Medications to Continue on Transfer Cholecalciferol Vit D3 [Vitamin D3 2000 units tab (OTC)] 2,000 units PO DAILY [Last Taken 08/23/16] Herbals/Supplements -Info Only 1 ea PO DAILY 05/30/15 [Last Taken Unknown] cloZAPine [Clozaril (*)] 25 mg PO BID 05/30/15 [Last Taken 08/24/16] rOPINIRole HCL [Ropinirole ER] 3 mg PO BID@09,12 05/30/15 [Last Taken 08/24/16 09:00] Carbidopa/Levo Cr 25/100Mg [Sinemet CR 25/100 MG (*)] 1 tab PO .X5D@08,,14,17, 21 09/19/15 [Last Taken 08/24/16 08:00] rOPINIRole HCL [Ropinirole ER] 2 mg PO HS 08/24/16 [Last Taken 08/23/16] Acetaminophen [Tylenol 325mg (*)] 650 mg PO Q6 PRN #0 tab 08/28/16 [Last Taken Unknown] Enoxaparin [Lovenox 40 MG (*)] 40 mg SC DAILY #10 syr 08/28/16 [Last Taken Unknown] traMADol [Ultram 50 mg (*)] 25 mg PO Q6HRS #0 tab 08/28/16 [Last Taken Unknown] Discharge Medications: Refer to the Discharge Home Medication list for PRN reason. PICC Care - Routine: N/A - Orders Services needed: Physical Therapy, Occupational Therapy Diet Texture: Regular Texture Diet Weigh Patient: daily Activity/Weight Bearing Restrictions: wbat/ recommending use of walker Additional: recommending lovenox until more mobile - Labs/Radiology BMP Date: 09/01/16 CBC Date: 09/01/16 (weekly) - Follow Up Care Current Providers and Referrals: Bonnie Zepeda MD [Primary Care Provider] - (follow up for bone density) Patient,NotPresent [Unknown] - As per Instructions Cami Dumont MD [Medical Doctor] - follow up in 2 weeks
--- NOTE | 2016-08-28 13:51 | WOCRNPDOC ---
WOCRN Advanced Assessment Note - Skin Integrity Problem, Advanced Assess Left Sacrum Pressure Injury Dressing Type: Allevyn Life Dressing Description: Clean/Dry, Intact Exudate Amount: None Exudate Characteristic(s): None Integumentary Issue Intervention: Visualized Under Dressing Elizabeth Wound Tissue: Erythema, Non-blanching, Scaly (tiny spot), Dry Site Odor: None Site Measurement - Head-to-Toe Length X Width X Depth (cm): 1 x 0.3 x 0.01(? see explanation in Comments) Skin Integrity Problem Comment: Small, linear site is discolored, non-blanching ; resembles pettechia, with a slightly scaly feature that may be dried, flaking skin rather than broken skin, making staging an ambiguous determination. Staff has placed appropriate dressing; patient is remobilizing and up to chair. Have added an air cushion to plan of care. Discussed with patient and , and TORRIE Barry. Coccyx Pressure Injury Dressing Type: Allevyn Life Dressing Description: Clean/Dry, Intact Exudate Amount: None Integumentary Issue Intervention: Visualized Under Dressing Elizabeth Wound Tissue: Erythema, Non-blanching, Scaly (tiny spot at epidermal surface) Elizabeth Wound Swelling: None Site Odor: None Site Measurement - Head-to-Toe Length X Width X Depth (cm): 0.3 cm mary x 0.01 ( superficial epidermis) Pressure Injury Stage: Stage 2 Skin Integrity Problem Comment: Tiny site is discolored, non-blanching resembles pettechia, with a slightly scaly feature that may be dried, flaking skin (similar to L sacrum feature noted above) rather than broken skin, making staging an ambiguous determination. Staff has placed appropriate dressing; patient is remobilizing and up to chair. Have added an air cushion to plan of care. Discussed with patient and , and TORRIE Barry.
--- NOTE | 2016-08-28 16:11 | GDS ---
[f rep st] DISCHARGE SUMMARY DISCHARGE DIAGNOSES: 1. Right femoral neck fracture, status post repair. 2. Left hand numbness. 3. Hypotension with associated oliguria. 4. Constipation, now with diarrhea. 5. Urinary frequency and urgency. 6. Parkinson disease. 7. Anemia. 8. Osteoporosis. 9. Leukocytosis. CONSULTATIONS DURING HER STAY: Dr. Cami Dumont. BRIEF HISTORY: The patient is a 71-year-old female with a history of Parkinson's. She presented to the emergency room with right hip pain after sustaining a fall and had been unable to bear weight. She reports severe pain in her right hip with any kind of movement. She was admitted and had an ex tremity CT, which showed a displaced right femoral neck fracture. This had a subacute appearance wi th loss of bone in the femoral neck with sclerosis and irregularity. In addition, a cervical spine CT was performed because of falling. This showed no definite fracture. She had cervical spondylosi s, degenerative disk disease at C6-C7, and right facet arthropathy at C3-C4. A head CT was performe d on admission, which showed mild atrophy without any acute hemorrhage, hydrocephalus or mass effect . She had no epidural or subdural hematoma, and no infarct. She was admitted. She was seen and ev aluated by Dr. Cami Dumont, and on 08/24/2016 she had surgery. Since having surgery, she has done wel l. The plan is for her to go to inpatient rehabilitation for further care. HOSPITAL COURSE PER PROBLEM: 1. Right femoral neck fracture. She is postop day #4 for a hemiarthroplasty with Dr. Dumont. She is weightbearing as tolerated. 2. Left hand numbness. I suspect this was from lying on the bed, and she had some nerve compressio n. Now, she says it is in the right in her right hand and has resolved in the left hand. 3. Hypotension with associated oliguria, resolved. 4. Constipation, now having diarrhea. I have not resumed the bowel protocol. 5. Urinary frequency and urgency. This was after the Smith was removed. Her urine shows no infect ious etiology. She said her symptoms have much improved. 6. Parkinson disease. She will follow up with Dr. Jennifer Suárez at [facility] for disease management . She has a history of auditory and visual hallucinations. Her Parkinson's likely contributed to h er fall. 7. Anemia. Will have this monitored in the outpatient setting. 8. Osteoporosis. Further follow up with Dr. Bonnie Zepeda. I am recommending a bone densit y study. 9. Leukocytosis, resolved. PENDING LABS AND TESTS: Her surgical specimen from her hip is pending. CONDITION AT DISCHARGE: Stable. Blood pressure is 127/65, heart rate 79, respiratory rate 16, O2 s aturation on room air 92%, temperature 36.9 Celsius. MEDICATIONS AT DISCHARGE: Please see the EMR. DISCHARGE INSTRUCTIONS: 1. Weightbearing as tolerated. 2. Continue Lovenox until she is more mobile. Greater than 30 minutes discharging and coordinating care. /[id number]/[id number]
== END 2016-08-28 14:19 | DRG 470 ==
LOC: EDUNIT# → F3N 12:33
PROVIDERS: ADMIT Family Medicine; ATTEND Family Medicine
PROC: 0SRR0JZ Replacement of Right Hip Joint, Femoral Surface with Synthetic Substitute, Open Approach (ICD-10-PCS; principal; 2016-08-24 18:15)
DX: S72.001A Fracture of unspecified part of neck of right femur, initial encounter for closed fracture (principal); W18.30XA Fall on same level, unspecified, initial encounter; Y92.002 Bathroom of unspecified non-institutional (private) residence as the place of occurrence of the external cause; G20 Parkinson's disease; I95.1 Orthostatic hypotension; R20.0 Anesthesia of skin; R44.1 Visual hallucinations; M81.0 Age-related osteoporosis without current pathological fracture; R34 Anuria and oliguria; R35.0 Frequency of micturition; R39.15 Urgency of urination; K59.00 Constipation, unspecified; R19.7 Diarrhea, unspecified; M50.322 Other cervical disc degeneration at C5-C6 level
CPT/HCPCS: 82947-QW; 96374; 97116-GP; 97162-GP; 97166-GO; 97530-GO; 97530-GP; 97535-GO; G8978-GP-CM; G8979-GP-CJ; G8987-GO-CK; G8988-GO-CJ; G8989-GO-CJ; J0171; J0690; J1100; J1650; J1885; J2310; J2370; J2405; J2704; J2795; J3010

== ENCOUNTER 2016-08-28 11:59 | Inpatient (IN) | payer OTHER ==
[2016-08-28] MEDS ORDERED: ACETAMINOPHEN 325 MG TAB PO PRN (15:57)
[2016-08-28] MEDS ORDERED: CARBIDOPA/LEVO CR 25 MG/100 MG TAB PO SCH ×2 (16:00→21:00)
[2016-08-28] MEDS ORDERED: BENEFIBER/NUTRISOURCE FIBER PKT 1 EACH PO PRN (16:00)
[2016-08-28] MEDS ORDERED: MAGNESIUM HYDROXIDE 30 ML UDCUP PO PRN (16:00)
[2016-08-28] MEDS ORDERED: SENNOSIDES 17.6 MG/10 ML UDL PO PRN (16:00)
[2016-08-28] MEDS ORDERED: POLYETHYLENE GLYCOL 3350 17 GM PKT PO PRN (16:00)
[2016-08-28] MEDS ORDERED: MAG HYDROX/AL HYDROX/SIMETH 30 ML UDCUP PO PRN (16:00)
[2016-08-28] MEDS: traMADol 50 MG TAB PO SCH (17:44)
--- NOTE | 2016-08-28 17:51 | GHP ---
[f rep st] HISTORY AND PHYSICAL POST ADMISSION EVALUATION AND REHABILITATION TREATMENT PLAN DATE OF ADMISSION: 08/28/2016 DATE OF EVALUATION: 08/28/2016 TIME OF EVALUATION: 4:13 p.m. REFERRING FACILITY: [facility]. REFERRING PHYSICIAN: Dr. Shepherd DATE OF ONSET: 08/24/2016 PREOPERATIVE DIAGNOSIS: Hip fracture and hip arthroplasty. IMPAIRMENT GROUP/ETIOLOGIC DIAGNOSIS: 08.11 and 08.51. DATE OF SURGERY: 08/24/2016 HISTORY OF PRESENT ILLNESS: This is a 71-year-old female with a history of Parkinson's disease followed by Dr. Suárez at [facility], admitted to [facility] on 08/24/2016 after a fall with some loss of consciousness, found to have a right-sided femoral neck fracture, status post hip hemiarthroplasty. The patient was heard to fall on her deck at home by her who came out and saw that, at the time he found her, she was conscious. She does not remember the fall. She notes she has a history of several falls over the past year or two of relatively unclear etiology with some concern about mechanical type falls related to her Parkinson's versus orthostatic hypotension, also possibly related to Parkinson's or other etiologies. When her found her, he helped her to her feet. She found she could not bear weight. He brought her in and sat her on the toilet because she had to use the bathroom, at which time she found that she could not get off the toilet. She asked to have some blankets next to the toilet so she could lie down for a while. She took a nap and then when woke up, the decision was made to go to the hospital. On CT scan of the lower extremities, she was found to have a right femoral neck fracture on CT and taken to the OR on 08/24/2016 for a right hemiarthroplasty, anterior approach. She also notes that she laid on her arm for some period of time and has left-sided hand numbness in the posterior aspect of her hand, particularly over the left-sided thumb and index finger. She experienced this numbness after the fall and notes that she felt that she first noticed it the morning afterwards. She notes that the hand mobility is also now worse after the fall. She is unable to straighten her wrist or extend her fingers, but she is able to flex her fingers, not able to do dexterous motion. She notes she was able to type before the accident and not afterwards. She also notes she has a history of left hand injury in [facility] about 18 months ago where she had a cut on her left hand complicated by infection and she notes that she did have some tingling after that injury but she did not feel like the function was this bad. In the hospital course, she also had some urinary frequency and some hypotension that improved with fluids. Note she had a Smith for urinary retention that has been since removed and she had some constipation that has also improved. Today, on interview, she notes that otherwise she is feeling fairly well. She does not experience any orthostatic hypotension at this moment, no shortness of breath or chest pain. No other numbness, tingling, or weakness besides that noticed on her left hand. None in the legs specifically and none in the face. FUNCTIONAL HISTORY: Previously, she was modified independence with a front- wheel walker, though per her family's report, she was not using it very much, though she was encourage to do so by Dr. Suárez. She did get some help with medication management and housework from her . She had some difficulty getting out of bed before this fall and would sometimes get some assistance. Currently, she needs assistance with grooming and has some incontinence of bladder. She is minimum to moderate assist for mobility and transfers, and on my interview with her and examination, she was about min assist for transfer. REVIEW OF SYSTEMS: She denies any palpitations or sudden episodes of lightheadedness that are not related to standing up. All other systems are negative except for what is described above. PRECAUTIONS: She has anterior hip precautions and weightbearing as tolerated on her left lower limb. ACTIVE COMORBIDITIES: She has anemia, hypotension, and deconditioned and has active Parkinson's. PAST MEDICAL/SURGICAL HISTORY: Includes Parkinson's, osteoporosis, orthostatic hypotension, history of hysterectomy, knee arthroplasty, history of falls as noted above, and wrist fracture that was old, as well as the history of left hand infection from [facility] that is resolved. FAMILY HISTORY: Daughter has epilepsy that has been in remission for 30 years. A sister of CHF at 69. SOCIAL HISTORY: She lives at home with her in a multilevel home with about 2-4 stairs to enter. She denies any tobacco or drugs. Drinks occasional alcohol. They all live on 1 level of the house. 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 ALLERGIES: Sulfa. She gets hives. PREHOSPITAL MEDICATIONS: Came from the emergency department note and reviewed with the patient's family, includes: 1. Cholecalciferol. 2. Vitamin D3 2000 units daily. 3. Herbal supplements daily. 4. Clozaril 25 mg p.o. b.i.d. 5. Ropinirole 3 mg p.o. b.i.d. at 9 and 12 and 2 mg p.o. q.h.s. 6. Carbidopa/levodopa 25/100, 1 tablet p.o. 5 times a day at 8, 11, 14, 17 and 2100 hours. ADMITTING MEDICATIONS: As follows: 1. Cholecalciferol 2000 units daily. 2. Herbal supplements daily. 3. Clozapine 25 mg p.o. b.i.d. 4. Ropinirole 3 mg p.o. b.i.d. at 9 and 12 and 3 mg q.h.s. 5. Carbidopa/levodopa 25/100 mg 5 times a day at 8, 11, 14, 17 and 2100 hours. 6. Acetaminophen at 650 mg p.o. q.6 hours p.r.n. for pain. 7. Enoxaparin 40 mg subcutaneous daily. 8. Tramadol 25 mg p.o. q.6 hours schedule. These are the medications she was on and stable on admission to inpatient rehabilitation. There are a number of potential interactions, and given the stability of her symptoms and overall picture on these medications, we continued them. We will monitor closely for worsening orthostatic hypotension or side effects. PHYSICAL EXAMINATION: VITAL SIGNS: Please see the EMR. GENERAL: She is in no apparent distress, sitting in the exam room in a chair. She was originally moved from her bed, no apparent distress. EYES: Anicteric. Pupils equal, round and reactive to light. EARS, NOSE, MOUTH, THROAT: Moist mucous membranes. Normal dentition. CARDIOVASCULAR: Heart was a regular rate and rhythm. No lower extremity edema. Extremities were warm. She had no carotid bruits. RESPIRATORY: She is breathing comfortably on room air. Lungs are clear to auscultation bilaterally. No wheezes, rhonchi or rales. GI: Abdomen is nondistended. Positive bowel sounds. Nontender. : No Smith in place. MUSCULOSKELETAL: No contracture noted. No lower extremity swelling. SKIN: She had no rashes. She did have a couple of areas of skin breakdown on her sacrum, appeared to be approximately stage 2. There was a bit of a linear aspect to it that made it appear that it could be related to an abrasion rather than pressure; however, it is unclear. PSYCH: She is appropriate, pleasant, cooperative. She endorsed a normal mood. She had a flat and somewhat gruff affect. She had normal thought content. HEME/LYMPH: No supraclavicular lymphadenopathy. No cervical adenopathy. NEURO: Mental status: The patient is alert and oriented to herself, the hospital, and the date. Cranial nerves 2 through 12 are intact and symmetric bilaterally including no diplopia. Strength was approximately 4/5 diffusely in the upper and lower limbs with the exception of the left side and the wrist extensor and finger extensors compared to the right. Also, she had pain inhibition of her hip flexor and knee extensor on the right side due to the surgery. Reflexes were 3+ and symmetric in the biceps, triceps. Brachioradialis was not tested. She had 3+ in the bilateral patella and absent Achilles with downgoing toes bilaterally and absent Boswell's. No spasticity was appreciated. Could not appreciate significant cogwheeling. Sensation was intact to light touch in the bilateral hands and feet with the exception of the left side in the aspect of the dorsum of the hand around the thumb and index finger. She had decreased rapid alternating movements on the left hand owing to decreased finger extension. [id number] on the right had significant tremor. She was not able to do it on the left. Her sitting balance was intact. She was not ambulated but was observed to transfer as noted above. RESULTS REVIEW: The CT of the hip from 08/24/2016 showed a displaced subacute fracture of the right femoral neck, including degenerative disk disease. These images were personally reviewed and my interpretation did not differ significantly from the initial read. Also, recent hemoglobin and hematocrit was 8.9/27.6 on 08/27/2016. ASSESSMENT AND PLAN: This is a very pleasant 71-year-old previously high- functioning woman with history of Parkinson's disease, now status post a fall and right-sided femoral neck fracture and anterior approach hemiarthroplasty on 08/24/2016, now in inpatient rehabilitation for impaired mobility and self care in the setting of this postoperative repair of the femoral neck fracture, complicated by Parkinson's, as well as what appears to be radial nerve injury on the left side, likely related to compression post fall. She certainly has a complicated medical history but it seems to be under good overall control. She also has a stage 2 pressure ulcer that could be an ulcer related to abrasion related to fall, unclear, and will need to be monitored closely. Overall, she has an excellent prognosis in inpatient rehabilitation. The following issues were discussed in detail: 1. Status post right femoral neck fracture and anterior approach hemiarthroplasty: The patient will continue on hip precautions and weightbearing as tolerated on the right side. She will also continue with physical therapy and occupational therapy for her impaired mobility and self care in this regard. Again, she has multiple additional comorbidities that will also be managed during this course. For pain after this, she will be on Ultram as continuing from her prior admission. There are some medication interactions with this drug; however, we will continue to monitor her closely. She is on a stable dose. At this point, we will monitor her carefully. She also has breakthrough acetaminophen. It will be important to teach good management of precautions and use of the walker for prevention of future falls. 2. Left-sided peripheral nerve injury: It appears to be related to the radial injury given the area of impaired sensation on the posterior aspect of the left hand, as well as absent wrist extension and finger extension on the left side. There does not appear to be electrodiagnostics to back this up; however, we can consider electrodiagnostics in the coming days as sufficient time allows us to note denervation changes on EMG studies. 3. Parkinson's disease. She is on her current medications, including ropinirole and carbidopa/levodopa at unchanged doses since she was admitted to the hospital. We will continue these and her herbals and supplements and cholecalciferol as well. I have a feeling that the falls may be related to her Parkinson's and may be related to mechanical falls, although we will try to investigate other causes as well. 4. Anemia: She does have some anemia. It appears that it may be related to postoperative, though this will require a little bit more digging. For the meantime, we will monitor for recovery. 5. Hallucinations: She has a history of hallucinations and is on clozapine. We will continue this at 25 mg b.i.d. and repeat a blood draw for management of side effects on 09/01/2016. This has been ordered. 6. Diet: Regular, thin. 7. Code status: This was discussed with the patient today, and she notes that she has information on file but she wants a do not resuscitate order in the chart. The implications of this were discussed in detail. 8. Prophylaxis: Lovenox 40 mg subcutaneous daily, duration unknown but will continue for now postoperatively. 9. Skin: She has a stage 2 pressure ulcer. We will do a wound care consult. 10. Estimated length of stay/disposition: 10-14 days. Plan to discharge home with family and Home Health. Goal is to be modified independent for transfer and ambulation with supervision of standby assistance for bed mobility, dressing and bathing, and some assistance with IADLs. 11. Followup: She will follow up with Dr. Zepeda, her primary care physician, as well as Dr. Dumont in 2 weeks, as well as Dr. Suárez for her Parkinson 's symptoms. 12. Orthostatic hypotension: Responsive to fluids in acute care. Hypotensive in evening of admission to [facility], placing PIV, giving 1 L NS bolus. Monitor clinically for symptoms of hypotension. The patient is medically stable for participation in inpatient rehabilitation. I have reviewed the preadmission screen and I do not identify any relevant changes in the patient's status since this was completed with the exception of impairment on the left arm than was previously described. There are multiple complications that could ensue with the rehabilitation plan, including complications of Parkinson's, and complications of immobility, including DVT, which we are trying to prophylax with Lovenox, additional falls which we will be addressing in therapy, encouraging use of the walker, and also falls related to her orthostatic hypotension. We will encourage p.o. fluids and careful mobilization. /[id number]/MODL MTDD
[2016-08-28] MEDS ORDERED: NS 1,000 ML IV ONE (20:15)
[2016-08-28] MEDS: cloZAPine 25 MG TAB PO SCH (20:42)
[2016-08-28] MEDS: ROPINIROLE HCL 2 MG PO SCH (20:43)
[2016-08-28] MEDS ORDERED: ROPINIROLE HCL 2 MG PO SCH (21:00)
[2016-08-28] MEDS ORDERED: cloZAPine 25 MG TAB PO SCH (21:00)
[2016-08-29] MEDS: traMADol 50 MG TAB PO SCH ×5 (00:25→23:18)
[2016-08-29] MEDS ORDERED: ROPINIROLE HCL 3 MG PO SCH (09:00)
[2016-08-29] MEDS ORDERED: Herbals/Supplements -Info Only PO SCH (09:00)
[2016-08-29] MEDS: CARBIDOPA/LEVO CR 25 MG/100 MG TAB PO SCH ×5 (09:09→20:22)
[2016-08-29] MEDS: CHOLECALCIFEROL VIT D3 2,000 UNITS TAB/CAP PO SCH (09:10)
[2016-08-29] MEDS: ENOXAPARIN 40 MG/0.4 ML SYR SC SCH (09:10)
[2016-08-29] MEDS: cloZAPine 25 MG TAB PO SCH ×2 (09:12→20:22)
[2016-08-29] MEDS: ROPINIROLE HCL 3 MG PO SCH ×2 (09:13→12:08)
--- NOTE | 2016-08-29 12:59 | SOAPPROG ---
SOAP Progress Note Assessment/Plan: Assessment: 71 yo F with traumatic R hip fracture 08/24/16, s/p anterior approach hemiarthroplasty on 08/24/16, complicated by existing Parkinson's and nerve injuries. * R hip fracture s/p hemiarthroplasty. PT and OT to optimize mobility and ADLs. * Orthostatic hypotension by history. Recheck. Denies symptoms. 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 Observe for improvement. Therapies re function. * Parkinson's disease. Continue ropinirole and Sinemet. Evaluation and treatment re fall risk. * Anemia, likely post-operative. * History of hallucinations on dopaminergic medications, resolved with low-dose clozapine. Due for CBC monitoring for clozapine use. * Prophylaxis. Enoxaparin 40 mg SC QD, likely for 4 weeks unless mobility improved considerably. Expect 10 - 14 day LOS. Follow-up surgeon Dr. Dumont week of 09/11/16, PCP Dr. Parish and Neurologist Dr. Suárez. 08/30/16 13:42 Subjective: Had pain after PT today, to 10/28. Took 25 mg tramadol without much relief but got sleepy. Concerned re L wrist and hand weakness. Can't lift wrist. Bowels moved yesterday. sleeping OK. No urinary issues. Denies lightheadedness with standing. Objective: Vital Signs Temp Pulse Resp BP Pulse Ox 36.8 C 82 16 104/62 92 08/29/16 05:43 08/29/16 05:43 08/29/16 05:43 08/29/16 05:43 08/29/16 05:43 08/28/16 08/29/16 08/30/16 05:59 05:59 05:59 Intake Total 1400 360 Output Total 150 725 Balance 1250 -365 Physical Exam - Physical Exam General Appearance: WD/WN, alert, no apparent distress, thin Respiratory: normal breath sounds, No crackles, No rhonchi, No wheezing Cardiac/Chest: regular rate, rhythm, No edema Abdomen: normal bowel sounds, non-tender, soft, No distended Skin: normal color, warm/dry (Linear abrasions X 2 over sacrum & L buttock, approx 1 cm each) Neuro/Psych: alert, normal mood/affect, oriented x 3, motor weakness (L wrist extensors and finger abductors.), other (Minimal resting tremor. + cogwheeling magen RUE. Masked facies, quiet voice.) ICD10 Worksheet Patient Problems: Problems Problem Status Onset Chronic Disease Mgmt/Transitional Care Acute
[2016-08-29] MEDS: ACETAMINOPHEN 500 MG TAB PO SCH ×2 (15:53→23:17)
[2016-08-29] MEDS ORDERED: ACETAMINOPHEN 325 MG TAB PO SCH (16:00)
[2016-08-29] MEDS: ROPINIROLE HCL 2 MG PO SCH (20:23)
[2016-08-30] MEDS: traMADol 50 MG TAB PO SCH ×4 (04:06→17:36)
[2016-08-30] MEDS: ACETAMINOPHEN 500 MG TAB PO SCH ×4 (05:05→22:25)
[2016-08-30] MEDS: traMADol 50 MG TAB PO PRN (07:16)
[2016-08-30] MEDS: ENOXAPARIN 40 MG/0.4 ML SYR SC SCH (07:25)
[2016-08-30] MEDS: CHOLECALCIFEROL VIT D3 2,000 UNITS TAB/CAP PO SCH (07:26)
[2016-08-30] MEDS: CARBIDOPA/LEVO CR 25 MG/100 MG TAB PO SCH ×6 (07:26→20:56)
[2016-08-30] MEDS: cloZAPine 25 MG TAB PO SCH ×2 (08:49→20:56)
[2016-08-30] MEDS: ROPINIROLE HCL 3 MG PO SCH ×2 (08:50→11:07)
[2016-08-30] MEDS: SENNOSIDES 1 TAB PO PRN ×2 (11:09→11:16)
--- NOTE | 2016-08-30 13:51 | SOAPPROG ---
SOAP Progress Note Assessment/Plan: Assessment: 71 yo F with traumatic R hip fracture 08/24/16, s/p anterior approach hemiarthroplasty on 08/24/16, complicated by existing Parkinson's and nerve injuries. * R hip fracture s/p hemiarthroplasty. Initial FIM 60. Needs mod A for bed mobility; assistance for ADLs. Once she's up she can walk 300' SBA/CGA. Accomplished 3 [address] steps with FWW and 3 stairs with 1 rail CGA.PT and OT to optimize mobility and ADLs. * Orthostatic hypotension by history. Recheck. Denies symptoms. 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 D/E Neurology, Dr. Parrish, . If compressive etiology, would not show on electrodiagnostic for 3 - 4 weeks, and by then she should be recovering. Observe for improvement. Therapies re function. Neurology referral if she does not improve 3 - 4 weeks after injury (first noted 08/27/16). * Parkinson's disease. Continue ropinirole and Sinemet. Evaluation and treatment re fall risk. Unclear if med titration would help with ADLs and bed mobility. D/W primary neurologist Dr. Jennifer Suárez: advises increasing Sinemet CR to 0.75 tab for the morning dose 30 - 40 minutes before ADLs. Also advises midodrine 2.5 mg BID morning and noon to counteract orthostatic effect of Sinemet. Med changes ordered, to begin 08/31/16. * Anemia, likely post-operative. * History of hallucinations on dopaminergic medications, resolved with low-dose clozapine. Due for CBC monitoring for clozapine use. * Prophylaxis. Enoxaparin 40 mg SC QD, likely for 4 weeks unless mobility improved considerably. Attended staffing, 15 min. D/W case mgmt, nursing, PT, OT, [employer]. has been providing 24 hour care. Daughters are out of state; one is in state helping at present, the other will come when the first one leaves. Tentative discharge set for 09/08/16. Follow-up surgeon Dr. Dumont week of 09/11/16, PCP Dr. Parish and Neurologist Dr. Suárez. 08/30/16 15:13 Subjective: No complaints. Slept well, pain better. Had pain this morning after deep sleep overnight and did not awaken during the night for pain medication. No f/c , cough, dyspnea. Denies lightheadedness. Objective: Vital Signs Temp Pulse Resp BP Pulse Ox 36.7 C 85 16 140/79 H 95 08/30/16 07:33 08/30/16 07:34 08/30/16 07:33 08/30/16 07:34 08/30/16 07:33 08/29/16 08/30/16 08/31/16 05:59 05:59 05:59 Intake Total 1400 1260 Output Total 150 925 Balance 1250 335 - Time Spent With Patient Time Spent With Patient: Greater than 35 minute floor time today, including more than 50% of time in coordination of care during staffing meeting and phone conversation with Dr. Suárez, and counseling patient. Physical Exam - Physical Exam General Appearance: WD/WN, alert, no apparent distress, thin Respiratory: normal breath sounds, No crackles, No rhonchi, No wheezing Cardiac/Chest: regular rate, rhythm, No edema Neuro/Psych: no motor/sensory deficits, alert, normal mood/affect, oriented x 3 , other (Minimal tremor) ICD10 Worksheet Patient Problems: Problems Problem Status Onset Chronic Disease Mgmt/Transitional Care Acute
[2016-08-30] MEDS ORDERED: CARBIDOPA/LEVODOPA 25 MG/100 MG TAB ONE (17:42)
[2016-08-30] MEDS: ROPINIROLE HCL 2 MG PO SCH (20:57)
[2016-08-31] MEDS: traMADol 50 MG TAB PO SCH ×4 (00:04→17:16)
[2016-08-31] MEDS: ROPINIROLE HCL 3 MG PO SCH ×2 (08:55→12:47)
[2016-08-31] MEDS: cloZAPine 25 MG TAB PO SCH ×2 (08:55→21:21)
[2016-08-31] MEDS: ACETAMINOPHEN 500 MG TAB PO SCH ×3 (08:56→21:20)
[2016-08-31] MEDS: CARBIDOPA/LEVO CR 25 MG/100 MG TAB PO SCH ×5 (08:56→21:22)
[2016-08-31] MEDS: CHOLECALCIFEROL VIT D3 2,000 UNITS TAB/CAP PO SCH (08:58)
[2016-08-31] MEDS: ENOXAPARIN 40 MG/0.4 ML SYR SC SCH (08:58)
[2016-08-31] MEDS: SENNOSIDES 1 TAB PO PRN (08:58)
[2016-08-31] MEDS: MIDODRINE HCL 5 MG TAB PO SCH ×2 (10:02→12:47)
[2016-08-31] MEDS: traMADol 50 MG TAB PO PRN (10:17)
--- NOTE | 2016-08-31 12:44 | SOAPPROG ---
SOAP Progress Note Assessment/Plan: Assessment: 71 yo F with traumatic R hip fracture 08/24/16, s/p anterior approach hemiarthroplasty on 08/24/16, complicated by existing Parkinson's and nerve injuries. * R hip fracture s/p hemiarthroplasty. Initial FIM 60. Needs mod A for bed mobility; assistance for ADLs. Once she's up she can walk 300' SBA/CGA. Accomplished 3 curb steps with FWW and 3 stairs with 1 rail CGA. PT and OT to optimize mobility and ADLs. Appears improved with increased AM Sinemet from 0.5 tab to 0.75 tab, and addition of midodrine 2.5 mg. * Orthostatic hypotension by history. Recheck. Denies symptoms. Started midodrine 08/31/14 2.5 mg BID morning and noon. 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 D/E Neurology, Dr. Parrish, . If compressive etiology, would not show on electrodiagnostic for 3 - 4 weeks, and by then she should be recovering. Observe for improvement. Therapies re function. Neurology referral if she does not improve 3 - 4 weeks after injury (first noted 08/27/16). * Parkinson's disease. Continue ropinirole and Sinemet. Evaluation and treatment re fall risk. Unclear if med titration would help with ADLs and bed mobility. D/W primary neurologist Dr. Jennifer Suárez: advises increasing Sinemet CR to 0.75 tab for the morning dose 30 - 40 minutes before ADLs. Also advises midodrine 2.5 mg BID morning and noon to counteract orthostatic effect of Sinemet. Med changes ordered, to begin 08/31/16. * Anemia, likely post-operative. * History of hallucinations on dopaminergic medications, resolved with low-dose clozapine. Due for CBC monitoring for clozapine use. * Prophylaxis. Enoxaparin 40 mg SC QD, likely for 4 weeks unless mobility improved considerably. has been providing 24 hour care. Daughters are out of state; one is in state helping at present, the other will come when the first one leaves. Tentative discharge set for 09/08/16. Follow-up surgeon Dr. Dumont week of 09/11/16, PCP Dr. Parish and Neurologist Dr. Suárez. 08/31/16 12:42 Subjective: Feels like she's moving better today. SLept well, not in pain, no f/c, no cough/ dyspnea. Does not note dyskinesias this morning. Objective: Vital Signs Temp Pulse Resp BP Pulse Ox 36.9 C 81 16 122/70 H 92 08/31/16 08:00 08/31/16 08:00 08/31/16 08:00 08/31/16 08:00 08/30/16 20:00 08/30/16 08/31/16 09/01/16 05:59 05:59 05:59 Intake Total 1260 200 Output Total 925 500 Balance 335 -300 Physical Exam - Physical Exam General Appearance: WD/WN, alert, no apparent distress, thin Respiratory: normal breath sounds, No crackles, No rhonchi, No wheezing Cardiac/Chest: regular rate, rhythm, No edema, No diastolic murmur, No systolic murmur Skin: normal color, warm/dry Neuro/Psych: alert, normal mood/affect, oriented x 3, abnormal gait (Observed ambulating with 4WW accompanied by PT, slightly wide SASHA, improved stride length.), other (Masked facies. No tremor.) ICD10 Worksheet Patient Problems: Problems Problem Status Onset Chronic Disease Mgmt/Transitional Care Acute
[2016-08-31] MEDS: BISACODYL 10 MG SUPP PR PRN (18:30)
[2016-08-31] MEDS: ROPINIROLE HCL 2 MG PO SCH (21:23)
[2016-09-01] MEDS: traMADol 50 MG TAB PO SCH ×4 (00:30→17:28)
[2016-09-01 07:39] LABS: % IMMATURE GRANULYOCYTES 2.9 % (0.0-1.1); ADD DIFF? NO; ADD MORPH? NO; ADD SCAN? NO; ATYPICAL LYMPHOCYTE FLAG 10 (0-99); FRAGMENT RBC FLAG 0 (0-99); HEMATOCRIT 25.8 % (38.0-47.0); HEMOGLOBIN 8.2 g/dL (12.6-16.3); LEFT SHIFT FLG 20 (0-99); LIPEMIA HEMOLYSIS FLAG 80 (0-99); MEAN CELL HEMOGLOBIN 29.4 pg (27.9-34.1); MEAN CELL HEMOGLOBIN CONCENTR. 31.8 g/dL (32.4-36.7); MEAN CELL VOLUME 92.5 fL (81.5-99.8); PLATELET CLUMPS FLAG 0 (0-99); PLATELET COUNT 286 10^3/uL (150-400); RED BLOOD CELL COUNT 2.79 10^6/uL (4.18-5.33); RED CELL DISTRIBUTION WIDTH 13.9 % (11.5-15.2)
[2016-09-01 07:40] LABS: ANION GAP 7 mEq/L (8-16); CALCIUM 8.8 mg/dL (8.5-10.4); CARBON DIOXIDE 29 mEq/l (22-31); CHLORIDE 105 mEq/L (97-110); CREATININE 0.6 mg/dL (0.6-1.0); GLOMERULAR FILTRATION RATE > 60; GLUCOSE 86 mg/dL (70-100); POTASSIUM 4.3 mEq/L (3.5-5.2); SODIUM 141 mEq/L (134-144)
[2016-09-01] MEDS: CARBIDOPA/LEVO CR 25 MG/100 MG TAB PO SCH ×5 (08:49→21:35)
[2016-09-01] MEDS: CHOLECALCIFEROL VIT D3 2,000 UNITS TAB/CAP PO SCH (08:50)
[2016-09-01] MEDS: ACETAMINOPHEN 500 MG TAB PO SCH ×3 (08:50→21:36)
[2016-09-01] MEDS: ROPINIROLE HCL 3 MG PO SCH ×2 (08:50→12:03)
[2016-09-01] MEDS: ENOXAPARIN 40 MG/0.4 ML SYR SC SCH (08:50)
[2016-09-01] MEDS: MIDODRINE HCL 5 MG TAB PO SCH ×2 (08:50→12:04)
[2016-09-01] MEDS: cloZAPine 25 MG TAB PO SCH ×2 (08:51→21:36)
--- NOTE | 2016-09-01 11:27 | SOAPPROG ---
SOAP Progress Note Assessment/Plan: Assessment: 71 yo F with traumatic R hip fracture 08/24/16, s/p anterior approach hemiarthroplasty on 08/24/16, complicated by existing Parkinson's and nerve injuries. 09/01/2016- no orthostatic hypotension symptoms on midodrine. Walking significant distances (>300 ft per therapy), wants to stop enoxaparin, but post op from hip arthroplasty, will discuss again with patient. Would like knee high compression stockings as that is what she used at home. Receiving clozapine, continue cbc monitoring for side effects. * R hip fracture s/p hemiarthroplasty. Initial FIM 60. Needs mod A for bed mobility; assistance for ADLs. Once she's up she can walk 300' SBA/CGA. Accomplished 3 [address] steps with FWW and 3 stairs with 1 rail CGA. PT and OT to optimize mobility and ADLs. Appears improved with increased AM Sinemet from 0.5 tab to 0.75 tab, and addition of midodrine 2.5 mg. * Orthostatic hypotension by history. Recheck. Denies symptoms. Started midodrine 08/31/14 2.5 mg BID morning and noon. 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 D/E Neurology, Dr. Parrish, . If compressive etiology, would not show on electrodiagnostic for 3 - 4 weeks, and by then she should be recovering. Observe for improvement. Therapies re function. Neurology referral if she does not improve 3 - 4 weeks after injury (first noted 08/27/16). * Parkinson's disease. Continue ropinirole and Sinemet. Evaluation and treatment re fall risk. Unclear if med titration would help with ADLs and bed mobility. D/W primary neurologist Dr. Jennifer Suárez: advises increasing Sinemet CR to 0.75 tab for the morning dose 30 - 40 minutes before ADLs. Also advises midodrine 2.5 mg BID morning and noon to counteract orthostatic effect of Sinemet. Med changes ordered, to begin 08/31/16. * Anemia, likely post-operative. * History of hallucinations on dopaminergic medications, resolved with low-dose clozapine. CBC in 2 weeks from 09/01. * Prophylaxis. Enoxaparin 40 mg SC QD for now, will discuss again with patient. Knee high stockings. has been providing 24 hour care. Daughters are out of state; one is in state helping at present, the other will come when the first one leaves. Tentative discharge set for 09/08/16. Follow-up surgeon Dr. Dumont week of 09/11/16, PCP Dr. Parish and Neurologist Dr. Suárez. 09/01/16 11:22 Subjective: CC: orthostasis, DVT proph, medication monitoring No acute events overnight. Pt working well with therapies, walking 300 ft. Would like to stop enoxaparin shots. Denies any symptoms of orthostasis on midodrine. CBC looks good, clozapine continued. No other concerns, no new numbness, tingling or weakness. Objective: Vital Signs Temp Pulse Resp BP Pulse Ox 36.8 C 83 16 100/58 L 94 09/01/16 07:15 09/01/16 07:15 09/01/16 07:15 09/01/16 07:15 09/01/16 07:15 Laboratory Results 09/01/16 06:00 09/01/16 06:00 08/31/16 09/01/16 09/02/16 05:59 05:59 05:59 Intake Total 200 1710 Output Total 500 2000 Balance -300 -290 Physical Exam - Physical Exam General Appearance: alert, no apparent distress EENT: No scleral icterus (R), No scleral icterus (L) Respiratory: normal breath sounds, No respiratory distress Cardiac/Chest: normal peripheral pulses, regular rate, rhythm Skin: normal color, warm/dry Extremities: non-tender, No pedal edema, No swelling Neuro/Psych: alert, normal mood/affect ICD10 Worksheet Patient Problems: Problems Problem Status Onset Chronic Disease Mgmt/Transitional Care Acute
[2016-09-01] MEDS: ROPINIROLE HCL 2 MG PO SCH (21:42)
[2016-09-02] MEDS: traMADol 50 MG TAB PO SCH ×4 (00:10→17:01)
[2016-09-02] MEDS: CARBIDOPA/LEVO CR 25 MG/100 MG TAB PO SCH ×5 (08:46→20:46)
[2016-09-02] MEDS: MIDODRINE HCL 5 MG TAB PO SCH ×2 (08:46→12:20)
[2016-09-02] MEDS: ROPINIROLE HCL 3 MG PO SCH ×2 (08:46→12:20)
[2016-09-02] MEDS: cloZAPine 25 MG TAB PO SCH ×2 (08:46→20:45)
[2016-09-02] MEDS: CHOLECALCIFEROL VIT D3 2,000 UNITS TAB/CAP PO SCH (08:47)
[2016-09-02] MEDS: ACETAMINOPHEN 500 MG TAB PO SCH ×3 (08:47→21:04)
[2016-09-02] MEDS: ENOXAPARIN 40 MG/0.4 ML SYR SC SCH (08:47)
--- NOTE | 2016-09-02 13:22 | SOAPPROG ---
SOAP Progress Note Assessment/Plan: Assessment: * R hip fracture s/p hemiarthroplasty. PLEASE ASK PT TO CONFIRM POSSIBLE ANTERIOR HIP PRECAUTIONS, ALTHOUGH THIS IS A HEMIARTHROPLASTY, SOME ORTHO SURGEONS IN [place]OWN STILL ASSIGN HIP PRECAUTIONS. Initial FIM 60. Needs mod A for bed mobility; assistance for ADLs. Once she's up she can walk 300' SBA/ CGA. Accomplished 3 curb steps with FWW and 3 stairs with 1 rail CGA. PT and OT to optimize mobility and ADLs. Appears improved with increased AM Sinemet from 0.5 tab to 0.75 tab, and addition of midodrine 2.5 mg. * Orthostatic hypotension by history. Recheck. Denies symptoms. Started midodrine 08/31/14 2.5 mg BID morning and noon. 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 MAY BENEFIT FROM COCK UP WRIST SPLINT FOR TENODESIS EFFECT. D/E Neurology, Dr. Parrish, 08/30/16. If compressive etiology, would not show on electrodiagnostic for 3 - 4 weeks, and by then she should be recovering. Observe for improvement. Therapies re function. Neurology referral if she does not improve 3 - 4 weeks after injury ( first noted 08/27/16). * Parkinson's disease. Continue ropinirole and Sinemet. Evaluation and treatment re fall risk. Unclear if med titration would help with ADLs and bed mobility. D/W primary neurologist Dr. Jennifer Suárez: advises increasing Sinemet CR to 0.75 tab for the morning dose 30 - 40 minutes before ADLs. Also advises midodrine 2.5 mg BID morning and noon to counteract orthostatic effect of Sinemet. Med changes ordered, to begin 08/31/16. * Anemia, likely post-operative. * History of hallucinations on dopaminergic medications, resolved with low-dose clozapine. CBC in 2 weeks from 09/01. * Prophylaxis. Enoxaparin 40 mg SC QD for now, will discuss again with patient. Knee high stockings. Plan: 09/02/16 13:19 Subjective: She denies right hip pain, denies increased right hip pain with WBA. She reports numbness right lateral thigh Objective: Vital Signs Temp Pulse Resp BP Pulse Ox 36.7 C 93 16 120/68 91 L 09/02/16 06:28 09/02/16 06:28 09/02/16 06:28 09/02/16 06:28 09/02/16 06:28 Laboratory Results 09/01/16 06:00 09/01/16 06:00 09/01/16 09/02/16 09/03/16 05:59 05:59 05:59 Intake Total 5506 650 472 Output Total 1999 1300 1000 Soqnqkx -290 -650 -528 Physical Exam - Physical Exam General Appearance: WD/WN (RIGHT HIP INCISION LOOKS GOOD.), alert, no apparent distress Respiratory: lungs clear, normal breath sounds Cardiac/Chest: No edema, No JVD Abdomen: normal bowel sounds, non-tender, soft Skin: normal color, warm/dry Extremities: normal range of motion (grossly nl UE and LE ROM), No calf tenderness, No swelling, No Carlos's sign Neuro/Psych: alert, normal mood/affect, depressed affect, other (RESTING TREMOR. GOES FROM SIT TO STAND WITHOUT MUCH DIFFICULTY) ICD10 Worksheet Patient Problems: Problems Problem Status Onset Chronic Disease Mgmt/Transitional Care Acute
[2016-09-02] MEDS: SENNOSIDES 1 TAB PO PRN (17:02)
[2016-09-02] MEDS: ROPINIROLE HCL 2 MG PO SCH (20:45)
[2016-09-03] MEDS: traMADol 50 MG TAB PO SCH ×4 (00:27→17:35)
[2016-09-03] MEDS: ENOXAPARIN 40 MG/0.4 ML SYR SC SCH (08:37)
[2016-09-03] MEDS: ACETAMINOPHEN 500 MG TAB PO SCH ×3 (08:38→20:20)
[2016-09-03] MEDS: CHOLECALCIFEROL VIT D3 2,000 UNITS TAB/CAP PO SCH (08:39)
[2016-09-03] MEDS: CARBIDOPA/LEVO CR 25 MG/100 MG TAB PO SCH ×5 (08:39→20:20)
[2016-09-03] MEDS: MIDODRINE HCL 5 MG TAB PO SCH ×2 (08:39→11:40)
[2016-09-03] MEDS: cloZAPine 25 MG TAB PO SCH ×2 (08:40→21:12)
[2016-09-03] MEDS: ROPINIROLE HCL 3 MG PO SCH ×2 (08:41→11:41)
[2016-09-03] MEDS: SENNOSIDES 1 TAB PO PRN (08:50)
--- NOTE | 2016-09-03 12:08 | SOAPPROG ---
SOAP Progress Note Assessment/Plan: Assessment: * R hip fracture s/p hemiarthroplasty. PLEASE ASK PT TO CONFIRM POSSIBLE ANTERIOR HIP PRECAUTIONS, ALTHOUGH THIS IS A HEMIARTHROPLASTY, SOME ORTHO SURGEONS IN [place]OWN STILL ASSIGN HIP PRECAUTIONS. Initial FIM 60. Needs mod A for bed mobility; assistance for ADLs. Once she's up she can walk 300' SBA/ CGA. Accomplished 3 curb steps with FWW and 3 stairs with 1 rail CGA. PT and OT to optimize mobility and ADLs. Appears improved with increased AM Sinemet from 0.5 tab to 0.75 tab, and addition of midodrine 2.5 mg. * Sacral decub- WILL ASK PHYSICAL THERAPY TO PROVIDE SEAT CUSHION. PATIENT ADVIDED TO MINIMIZE PUTTING PRESSURE ON AREA WHILE SITTING OR LYING IN BED. * Orthostatic hypotension by history. Recheck. Denies symptoms. Started midodrine 08/31/14 2.5 mg BID morning and noon. * Radial nerve palsy. MAY BENEFIT FROM COCK UP WRIST SPLINT FOR TENODESIS EFFECT. D/E Neurology, Dr. Parrish, 08/30/16. If compressive etiology, would not show on electrodiagnostic for 3 - 4 weeks, and by then she should be recovering. Observe for improvement. Therapies re function. Neurology referral if she does not improve 3 - 4 weeks after injury (first noted 08/27/16). * Parkinson's disease. Continue ropinirole and Sinemet. Evaluation and treatment re fall risk. Unclear if med titration would help with ADLs and bed mobility. D/W primary neurologist Dr. Jennifer Suárez: advises increasing Sinemet CR to 0.75 tab for the morning dose 30 - 40 minutes before ADLs. Also advises midodrine 2.5 mg BID morning and noon to counteract orthostatic effect of Sinemet. Med changes ordered, to begin 08/31/16. * Anemia, likely post-operative. * History of hallucinations on dopaminergic medications, resolved with low-dose clozapine. CBC in 2 weeks from 09/01. * Prophylaxis. Enoxaparin 40 mg SC QD for now, will discuss again with patient. Knee high stockings. Plan: 09/02/16 13:19 09/03/16 12:11 Subjective: She reports concern of sacral decubitus and right wrist drop. She denies right hip pain while sitting or with WBA. Objective: Vital Signs Temp Pulse Resp BP Pulse Ox 36.6 C 81 16 110/68 95 09/03/16 06:12 09/03/16 06:12 09/03/16 06:12 09/03/16 06:12 09/03/16 06:12 Laboratory Results 09/01/16 06:00 09/01/16 06:00 09/02/16 09/03/16 09/04/16 05:59 05:59 05:59 Intake Total 650 822 Output Total 1300 1900 Balance -650 -1078 Physical Exam - Physical Exam General Appearance: WD/WN, alert, no apparent distress Respiratory: lungs clear, normal breath sounds Cardiac/Chest: No edema, No JVD Abdomen: normal bowel sounds, non-tender, soft Skin: normal color, warm/dry (INSPECTION OF SACRAL DECUB DEFERRED THERE IS NEW DRESSING. PER NURSING IT IS HEALING WELL) Neuro/Psych: alert, normal mood/affect, oriented x 3, abnormal gait (AMBULATES WITH FWW DECREASED STEP AND STRIDE LENGTH MAY WALKS QUICKLY), motor weakness ( LEFT WRIST DROP C/W WITH RADIAL NEUROPATHY. Nl triceps strength) ICD10 Worksheet Patient Problems: Problems Problem Status Onset Chronic Disease Mgmt/Transitional Care Acute
[2016-09-03] MEDS: BISACODYL 10 MG SUPP PR PRN (17:10)
[2016-09-03] MEDS: SENNOSIDES 1 TAB PO SCH (20:20)
[2016-09-03] MEDS: ROPINIROLE HCL 2 MG PO SCH (21:12)
[2016-09-04] MEDS: traMADol 50 MG TAB PO SCH ×2 (00:21→05:53)
[2016-09-04] MEDS: CARBIDOPA/LEVO CR 25 MG/100 MG TAB PO SCH ×5 (08:13→20:13)
[2016-09-04] MEDS: traMADol 50 MG TAB PO PRN (08:14)
[2016-09-04] MEDS: MIDODRINE HCL 5 MG TAB PO SCH ×2 (08:17→11:26)
[2016-09-04] MEDS: ACETAMINOPHEN 500 MG TAB PO SCH ×3 (08:18→21:17)
--- NOTE | 2016-09-04 09:08 | SOAPPROG ---
SOAP Progress Note Assessment/Plan: Assessment: 71 yo F with traumatic R hip fracture 08/24/16, s/p anterior approach hemiarthroplasty on 08/24/16, complicated by existing Parkinson's and nerve injuries. Tremulous, hot to touch, mild hypoxia, bladder distention to > 700 cc on bladder scan: suspect UTI. Blood already drawn for CBC, CMP, D-dimer. Catheterize bladder and send for UA. Await labs. Get blood cultures, CXR. * All labs and studies normal except minor elevation of WBCs and elevated D- dimer. CXR, UA w/out infection. Condition much improved after bladder decompression and now with no complaints. Highly doubt DVT/PE with improvement in symptoms; will not purse further evaluation despite elevated D- dimer (most likely due to recent surgery). D/C midodrine due to possible effect on bladder emptying. * R hip fracture s/p hemiarthroplasty. Initial FIM 60. Needs mod A for bed mobility; assistance for ADLs. Once she's up she can walk 300' SBA/CGA. Accomplished 3 curb steps with FWW and 3 stairs with 1 rail CGA. PT and OT to optimize mobility and ADLs. Appears improved with increased AM Sinemet from 0.5 tab to 0.75 tab, and addition of midodrine 2.5 mg. * Orthostatic hypotension by history. Recheck. Denies symptoms. Started midodrine 08/31/14 2.5 mg BID morning and noon. 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 D/E Neurology, Dr. Parrish, . If compressive etiology, would not show on electrodiagnostic for 3 - 4 weeks, and by then she should be recovering. Observe for improvement. Therapies re function. Neurology referral if she does not improve 3 - 4 weeks after injury (first noted 08/27/16). * Parkinson's disease. Continue ropinirole and Sinemet. Evaluation and treatment re fall risk. Unclear if med titration would help with ADLs and bed mobility. D/W primary neurologist Dr. Jennifer Suárez: advises increasing Sinemet CR to 0.75 tab for the morning dose 30 - 40 minutes before ADLs. Also advises midodrine 2.5 mg BID morning and noon to counteract orthostatic effect of Sinemet. Med changes ordered, to begin 08/31/16. * Anemia, likely post-operative. * History of hallucinations on dopaminergic medications, resolved with low-dose clozapine. Due for CBC monitoring for clozapine use. * Prophylaxis. Enoxaparin 40 mg SC QD, likely for 4 weeks unless mobility improved considerably. has been providing 24 hour care. Daughters are out of state; one is in state helping at present, the other will come when the first one leaves. Tentative discharge set for 09/08/16. Follow-up surgeon Dr. Dumont week of 09/11/16, PCP Dr. Parish and Neurologist Dr. Suárez. 09/04/16 12:32 Subjective: C/O L leg pain, then abd pain, then AGUERO, since about 0730 today. Was up to urinate at 0500, no dysuria. [place] cold, now hot. Noted to be diffusely tremulous. Has had normal appetite, BM yesterday. No cough or dyspnea, no CP. Objective: Vital Signs Temp Pulse Resp BP Pulse Ox 36.3 C 72 18 128/58 H 91 L 09/04/16 08:45 09/04/16 08:25 09/04/16 08:25 09/04/16 08:25 09/04/16 08:25 Laboratory Results 09/01/16 06:00 09/01/16 06:00 09/03/16 09/04/16 09/05/16 05:59 05:59 05:59 Intake Total 822 200 Output Total 1900 800 Balance -1078 -800 200 Physical Exam - Physical Exam General Appearance: WD/WN, alert, mild distress, thin Respiratory: normal breath sounds, No crackles, No rhonchi, No wheezing Cardiac/Chest: edema (trace LLE), tachycardia, No diastolic murmur, No systolic murmur Abdomen: normal bowel sounds, non-tender, soft, other (+/- palpable bladder), No distended Extremities: other (No calf tenderness.), No Carlos's sign Neuro/Psych: alert, normal mood/affect, oriented x 3, other (Diffusely tremulous , hypophonic, keeping eyes closed.) ICD10 Worksheet Patient Problems: Problems Problem Status Onset Chronic Disease Mgmt/Transitional Care Acute
[2016-09-04] MEDS: CHOLECALCIFEROL VIT D3 2,000 UNITS TAB/CAP PO SCH (10:02)
[2016-09-04] MEDS: SENNOSIDES 1 TAB PO SCH ×2 (10:02→20:14)
[2016-09-04] MEDS: ROPINIROLE HCL 3 MG PO SCH ×2 (10:03→11:25)
[2016-09-04] MEDS: cloZAPine 25 MG TAB PO SCH ×2 (10:03→20:13)
[2016-09-04 10:25] LABS: % IMMATURE GRANULYOCYTES 1.4 % (0.0-1.1); ABSOLUTE IMMATURE GRANULOCYTES 0.14 10^3/uL (0.00-0.10); ADD DIFF? NO; ADD MORPH? NO; ADD SCAN? NO; ATYPICAL LYMPHOCYTE FLAG 10 (0-99); FRAGMENT RBC FLAG 0 (0-99); HEMATOCRIT 28.5 % (38.0-47.0); HEMOGLOBIN 8.9 g/dL (12.6-16.3); LEFT SHIFT FLG 10 (0-99); LIPEMIA HEMOLYSIS FLAG 80 (0-99); MEAN CELL HEMOGLOBIN 29.1 pg (27.9-34.1); MEAN CELL HEMOGLOBIN CONCENTR. 31.2 g/dL (32.4-36.7); MEAN CELL VOLUME 93.1 fL (81.5-99.8); MEAN PLATELET VOLUME 9.9 fL (8.7-11.7); PLATELET CLUMPS FLAG 20 (0-99); PLATELET COUNT 358 10^3/uL (150-400); RED BLOOD CELL COUNT 3.06 10^6/uL (4.18-5.33)
[2016-09-04 10:34] LABS: ALANINE AMINOTRANSFERASE 44 IU/L (9-52); ALBUMIN 3.6 g/dL (3.5-5.0); ALKALINE PHOSPHATASE 80 IU/L (38-126); ANION GAP 8 mEq/L (8-16); ASPARTATE AMINOTRANSFERASE 38 IU/L (14-46); BILIRUBIN,TOTAL 0.7 mg/dL (0.1-1.4); CALCIUM 9.3 mg/dL (8.5-10.4); CARBON DIOXIDE 29 mEq/l (22-31); CHLORIDE 105 mEq/L (97-110); CREATININE 0.6 mg/dL (0.6-1.0); GLOMERULAR FILTRATION RATE > 60; GLUCOSE 85 mg/dL (70-100); POTASSIUM 4.5 mEq/L (3.5-5.2); SODIUM 142 mEq/L (134-144)
[2016-09-04 11:09] LABS: COLOR YELLOW; LEUKOCYTE ESTERASE,URINE NEGATIVE (NEGATIVE); NITRITE,URINE NEGATIVE (NEGATIVE)
[2016-09-04] MEDS: ENOXAPARIN 40 MG/0.4 ML SYR SC SCH (12:00)
[2016-09-04] MEDS ORDERED: CARBIDOPA/LEVODOPA 25 MG/100 MG TAB PO PRN (15:11)
[2016-09-04] MEDS: ROPINIROLE HCL 2 MG PO SCH (20:13)
[2016-09-05] MEDS: CARBIDOPA/LEVO CR 25 MG/100 MG TAB PO SCH ×5 (07:29→21:06)
[2016-09-05] MEDS: ENOXAPARIN 40 MG/0.4 ML SYR SC SCH (07:34)
[2016-09-05] MEDS: CHOLECALCIFEROL VIT D3 2,000 UNITS TAB/CAP PO SCH (07:34)
[2016-09-05] MEDS: ACETAMINOPHEN 500 MG TAB PO SCH ×3 (07:34→21:06)
[2016-09-05] MEDS: cloZAPine 25 MG TAB PO SCH ×2 (07:36→21:06)
[2016-09-05] MEDS: ROPINIROLE HCL 3 MG PO SCH ×2 (07:36→12:35)
[2016-09-05] MEDS: SENNOSIDES 1 TAB PO SCH ×2 (07:37→21:06)
--- NOTE | 2016-09-05 14:11 | SOAPPROG ---
SOAP Progress Note Assessment/Plan: Assessment: 71 yo F with traumatic R hip fracture 08/24/16, s/p anterior approach hemiarthroplasty on 08/24/16, complicated by existing Parkinson's and nerve injuries. 09/05/2016- episode of symptomatic hypotension, resolved with PO fluids. No further urinary retention after stopping midodrine. Starting fludrocortisone and salt tablets, encouraged caffeine as long as it does not increase tremor. No UTI on labs, culture not indicated. She is doing well today, participating in therapies. * R hip fracture s/p hemiarthroplasty. Initial FIM 60. Needs mod A for bed mobility; assistance for ADLs. Once she's up she can walk 300' SBA/CGA. Accomplished 3 curb steps with FWW and 3 stairs with 1 rail CGA. PT and OT to optimize mobility and ADLs. AM Sinemet from 0.5 tab to 0.75 tab. * Orthostatic hypotension: Stopped midodrine due to urinary retention, though it worked well for preventing orthostatic hypotension. Starting fludrocortisone and salt tabs, encouraging caffeine and PO fluid intake. Fluid responsive. 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 D/E Neurology, Dr. Parrish, . If compressive etiology, would not show on electrodiagnostic for 3 - 4 weeks, and by then she should be recovering. Observe for improvement. Therapies re function. Neurology referral if she does not improve 3 - 4 weeks after injury (first noted 08/27/16). * Parkinson's disease. Continue ropinirole and Sinemet. Evaluation and treatment re fall risk. Unclear if med titration would help with ADLs and bed mobility. D/W primary neurologist Dr. Jennifer Suárez: advises increasing Sinemet CR to 0.75 tab for the morning dose 30 - 40 minutes before ADLs. Also advises midodrine 2.5 mg BID morning and noon to counteract orthostatic effect of Sinemet. Med changes ordered, to begin 08/31/16. * Anemia, likely post-operative. Monitor. * History of hallucinations on dopaminergic medications, resolved with low-dose clozapine. Due for CBC monitoring for clozapine use. * Prophylaxis. Enoxaparin 40 mg SC QD, likely for 4 weeks unless mobility improved considerably. has been providing 24 hour care. Daughters are out of state; one is in state helping at present, the other will come when the first one leaves. Tentative discharge set for 09/08/16. Follow-up surgeon Dr. Dumont week of 09/11/16, PCP Dr. Parish and Neurologist Dr. Suárez. 09/01/16 11:22 09/05/16 14:04 Subjective: CC: hypotension No acute events overnight. Today notified by nursing that pt with hypotensive, symptomatic, in bed. She had BP systolic around 100, pulse in 90's. No chest pain, dyspnea, or other symptoms, but felt tired. She was able to answer questions and interact logically. Midodrine stopped yesterday due to urinary retention. Improved with PO fluids. She is OK with starting fludrocortisone and salt tabs, with some additional caffeine and increased po intake. Objective: Vital Signs Temp Pulse Resp BP Pulse Ox 36.4 C 95 16 100/59 L 96 09/05/16 10:13 09/05/16 10:13 09/05/16 10:13 09/05/16 10:13 09/05/16 10:13 Laboratory Results 09/04/16 08:10 09/04/16 08:10 09/04/16 09/05/16 09/06/16 05:59 05:59 05:59 Intake Total 1250 480 Output Total 800 1635 Balance -800 -385 480 Physical Exam - Physical Exam General Appearance: alert (decreased when BP was low. ), no apparent distress EENT: No scleral icterus (R), No scleral icterus (L) Respiratory: lungs clear, normal breath sounds, No respiratory distress, No accessory muscle use Cardiac/Chest: normal peripheral pulses, regular rate, rhythm Abdomen: normal bowel sounds, non-tender, soft Skin: normal color, warm/dry Extremities: No pedal edema, No swelling Neuro/Psych: alert (decreased when BP low though), normal mood/affect, oriented x 3 ICD10 Worksheet Patient Problems: Problems Problem Status Onset Chronic Disease Mgmt/Transitional Care Acute
[2016-09-05] MEDS: FLUDROCORTISONE ACETATE 0.1 MG TAB PO SCH (14:24)
[2016-09-05] MEDS: SODIUM CHLORIDE 1,000 MG TAB PO SCH (16:54)
[2016-09-05] MEDS: ROPINIROLE HCL 2 MG PO SCH (21:07)
[2016-09-06] MEDS: SENNOSIDES 1 TAB PO SCH ×2 (08:17→20:53)
[2016-09-06] MEDS: ACETAMINOPHEN 500 MG TAB PO SCH ×3 (08:17→20:51)
[2016-09-06] MEDS: FLUDROCORTISONE ACETATE 0.1 MG TAB PO SCH (08:18)
[2016-09-06] MEDS: CHOLECALCIFEROL VIT D3 2,000 UNITS TAB/CAP PO SCH (08:18)
[2016-09-06] MEDS: CARBIDOPA/LEVO CR 25 MG/100 MG TAB PO SCH ×5 (08:18→20:51)
[2016-09-06] MEDS: SODIUM CHLORIDE 1,000 MG TAB PO SCH ×2 (08:18→17:07)
[2016-09-06] MEDS: cloZAPine 25 MG TAB PO SCH ×2 (08:19→20:53)
[2016-09-06] MEDS: ROPINIROLE HCL 3 MG PO SCH ×2 (08:19→12:03)
[2016-09-06] MEDS: ENOXAPARIN 40 MG/0.4 ML SYR SC SCH (08:19)
--- NOTE | 2016-09-06 10:07 | SOAPPROG ---
SOAP Progress Note Assessment/Plan: Assessment: 71 yo F with traumatic R hip fracture 08/24/16, s/p anterior approach hemiarthroplasty on 08/24/16, complicated by existing Parkinson's and nerve injuries. * R hip fracture s/p hemiarthroplasty. Initial FIM 64 on 08/30/16; gain to 75 as of 09/06/16. Walking 300' SBA with FWW or 4WW. Accomplished 3 curb steps with FWW and 3 stairs with 1 rail CGA. Max A LB dressing and toileting for clothing management. Continue PT and OT to optimize mobility and ADLs. Appears improved with increased AM Sinemet from 0.5 tab to 0.75 tab. * Orthostatic hypotension by history. Recheck. Denies symptoms. Fludrocortisone 0.1 mg QD and NaCl supplement. Continue to monitor. 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 D/E Neurology, Dr. Parrish, . If compressive etiology, would not show on electrodiagnostic for 3 - 4 weeks, and by then she should be recovering. Observe for improvement. Therapies re function. Neurology referral if she does not improve 3 - 4 weeks after injury (first noted 08/27/16). * Parkinson's disease. Continue ropinirole and Sinemet. Evaluation and treatment re fall risk. Unclear if med titration would help with ADLs and bed mobility. D/W primary neurologist Dr. Jennifer Suárez: advises increasing Sinemet CR to 0.75 tab for the morning dose 30 - 40 minutes before ADLs. Med changes ordered, to begin 08/31/16. * Urinary retention. Improved with d/c of midodrine. * Acute tremulousness and reduced function 09/04/16, resolved with bladder catheterization; was retaining 700cc. All labs and studies normal except minor elevation of WBCs and elevated D-dimer. CXR, UA w/out infection. Highly doubt DVT/PE with improvement in symptoms; will not purse further evaluation despite elevated D-dimer (most likely due to recent surgery). D/C midodrine due to possible effect on bladder emptying. * Anemia, likely post-operative. * History of hallucinations on dopaminergic medications, resolved with low-dose clozapine. Due for CBC monitoring for clozapine use. * Prophylaxis. Enoxaparin 40 mg SC QD, likely for 4 weeks unless mobility improved considerably. Attended staffing, 15 min. D/W case mgmt, nursing, PT, OT, JUSTOWRITER OPERATOR. Attended family meeting, 30 min, and patient present. has been providing 24 hour care. Daughters are out of state; one is in state helping at present, the other will come when the first one leaves. Discharge set for . Home RN, PT, OT, JUSTOWRITER OPERATOR, WAX [employer]ATING MACHINE TENDER. Follow-up surgeon Dr. Dumont week of 09/11/16, PCP Dr. Parish and Neurologist Dr. Suárez. Remove russell today 09/06/16; leave half the russell in proximal 1 1/2 inches of incision, remove all distal russell. 09/06/16 18:34 Subjective: No complaints. Would like to go home. No urinary complaints. No lightheadedness. Objective: Vital Signs Temp Pulse Resp BP Pulse Ox 36.4 C 84 16 107/63 95 09/06/16 06:27 09/06/16 06:27 09/06/16 06:27 09/06/16 06:27 09/06/16 06:27 Laboratory Results 09/04/16 08:10 09/04/16 08:10 09/05/16 09/06/16 09/07/16 05:59 05:59 05:59 Intake Total 1250 1620 240 Output Total 1635 1450 300 Balance -385 170 -60 - Time Spent With Patient Time Spent With Patient: Greater than 35 minutes floor time today, including more than 50% of time in coordination of care during staffing meeting, and counseling patient and family during family meeting. ICD10 Worksheet Patient Problems: Problems Problem Status Onset Chronic Disease Mgmt/Transitional Care Acute
--- NOTE | 2016-09-06 16:25 | PDOREHIP ---
Admission [facility] - Admission - 3 Day Assessment Period Admission Date/Day 1: 08/28/16 Day 2: 08/29/16 Day 3: 08/30/16 - Active Diagnoses Comorbidities and Co-existing Conditions at Admission: [id number]. None of the Above - Skin Conditions Unhealed Pressure Ulcer (1 or more/Stage 1 or >)-Admission: 1. Yes # Stage 2 Pressure Ulcers-Admission: 1 (Multiple areas at the sacrum as documented by myself on the admission H&P from 08/28/2016. Unclear if related to pressure or abrasion. This documentation entered later in admission.) Discharge [facility] - Discharge - 3 Day Assessment Period 2 Days Prior to Anticipated Discharge Date: 09/06/16 1 Day Prior to Anticipated Discharge Date: 09/07/16 Anticipated Discharge Date: 09/08/16
[2016-09-06] MEDS: ROPINIROLE HCL 2 MG PO SCH (20:52)
[2016-09-07] MEDS: CARBIDOPA/LEVO CR 25 MG/100 MG TAB PO SCH ×5 (08:09→20:26)
[2016-09-07] MEDS: FLUDROCORTISONE ACETATE 0.1 MG TAB PO SCH (08:10)
[2016-09-07] MEDS: SODIUM CHLORIDE 1,000 MG TAB PO SCH ×2 (08:10→17:22)
[2016-09-07] MEDS: SENNOSIDES 1 TAB PO SCH ×2 (08:10→20:31)
[2016-09-07] MEDS: CHOLECALCIFEROL VIT D3 2,000 UNITS TAB/CAP PO SCH (08:10)
[2016-09-07] MEDS: ACETAMINOPHEN 500 MG TAB PO SCH ×3 (08:10→20:26)
[2016-09-07] MEDS: cloZAPine 25 MG TAB PO SCH ×2 (08:11→20:27)
[2016-09-07] MEDS: ENOXAPARIN 40 MG/0.4 ML SYR SC SCH (09:37)
[2016-09-07] MEDS: ROPINIROLE HCL 3 MG PO SCH ×2 (09:45→12:07)
--- NOTE | 2016-09-07 13:50 | SOAPPROG ---
SOAP Progress Note Assessment/Plan: Assessment: 71 yo F with traumatic R hip fracture 08/24/16, s/p anterior approach hemiarthroplasty on 08/24/16, complicated by existing Parkinson's and nerve injuries. 09/07/2016 - CBC tomorrow for monitoring of clozapine. Tolerating well, therapies going well. Continuing to monitor for orthostatic hypotension, improved on fludrocortisone though still mildly hypotensive. Discharging home tomorrow. * R hip fracture s/p hemiarthroplasty. Initial FIM 64 on 08/30/16; gain to 75 as of 09/06/16. Walking 300' SBA with FWW or 4WW. Accomplished [address] with FWW and 3 stairs with 1 rail CGA. Max A LB dressing and toileting for clothing management. Continue PT and OT to optimize mobility and ADLs. Appears improved with increased AM Sinemet from 0.5 tab to 0.75 tab. * Orthostatic hypotension. Fludrocortisone 0.1 mg QD and NaCl supplement, with improved symptoms. Continue to monitor. 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 D/E Neurology, Dr. Parrish, . If compressive etiology, would not show on electrodiagnostic for 3 - 4 weeks, and by then she should be recovering. Observe for improvement. Therapies re function. Neurology referral if she does not improve 3 - 4 weeks after injury (first noted 08/27/16). * Parkinson's disease. Continue ropinirole and Sinemet. Evaluation and treatment re fall risk. Unclear if med titration would help with ADLs and bed mobility. D/W primary neurologist Dr. Jennifer Suárez: advises increasing Sinemet CR to 0.75 tab for the morning dose 30 - 40 minutes before ADLs. Med changes ordered, to begin 08/31/16. * Urinary retention. Improved with d/c of midodrine. * Acute tremulousness and reduced function 09/04/16, resolved with bladder catheterization; was retaining 700cc. All labs and studies normal except minor elevation of WBCs and elevated D-dimer. CXR, UA w/out infection. Highly doubt DVT/PE with improvement in symptoms; will not purse further evaluation despite elevated D-dimer (most likely due to recent surgery). D/C midodrine due to possible effect on bladder emptying. * Anemia, likely post-operative. * History of hallucinations on dopaminergic medications, resolved with low-dose clozapine. Due for CBC monitoring for clozapine use. * Prophylaxis. Enoxaparin 40 mg SC QD, likely for 4 weeks unless mobility improved considerably. Discharge set for 09/08/16. Home RN, PT, OT, [employer], [employer]. Follow-up surgeon Dr. Dumont week of 09/11/16, PCP Dr. Parish and Neurologist Dr. Suárez. Removed russell 09/06/16; left half the russell in proximal 1 1/2 inches of incision, remove all distal russell. 09/01/16 11:22 09/05/16 14:04 09/07/16 13:47 Subjective: CC: wound care and medication side effect monitoring No acute events overnight. Pt concerned about signs and symptoms of infection and when to go to ED, educated. No signs or symptoms of pancytopenia, no bruising, bleeding, or new infections. Participating well in therapies, no new neurological symptoms. at bedside, no concerns. Objective: Vital Signs Temp Pulse Resp BP Pulse Ox 36.6 C 76 16 96/61 L 95 09/07/16 06:47 09/07/16 06:47 09/07/16 06:47 09/07/16 06:47 09/07/16 06:47 Laboratory Results 09/04/16 08:10 09/04/16 08:10 09/06/16 09/07/16 09/08/16 05:59 05:59 05:59 Intake Total 1620 970 Output Total 1450 1150 Balance 170 -180 Physical Exam - Physical Exam General Appearance: alert, no apparent distress EENT: No scleral icterus (R), No scleral icterus (L) Respiratory: normal breath sounds, No respiratory distress Cardiac/Chest: regular rate, rhythm, No edema Skin: normal color, warm/dry, other (Surgical site dressed, clean dry and intact from yesterday. No surrounding erythema. Could not directly visualize todayl. ) Extremities: non-tender, No pedal edema, No swelling Neuro/Psych: alert, normal mood/affect, other ICD10 Worksheet Patient Problems: Problems Problem Status Onset Chronic Disease Mgmt/Transitional Care Acute
[2016-09-07] MEDS: ROPINIROLE HCL 2 MG PO SCH (20:30)
[2016-09-07 23:21] VITALS: TEMP 97.3; O2SAT 96
[2016-09-08] MEDS: CARBIDOPA/LEVO CR 25 MG/100 MG TAB PO SCH ×2 (08:14→11:12)
[2016-09-08] MEDS: ACETAMINOPHEN 500 MG TAB PO SCH (08:22)
[2016-09-08] MEDS: SODIUM CHLORIDE 1,000 MG TAB PO SCH (08:22)
[2016-09-08] MEDS: cloZAPine 25 MG TAB PO SCH (08:23)
[2016-09-08] MEDS: CHOLECALCIFEROL VIT D3 2,000 UNITS TAB/CAP PO SCH (08:23)
[2016-09-08] MEDS: FLUDROCORTISONE ACETATE 0.1 MG TAB PO SCH (08:24)
[2016-09-08] MEDS: ENOXAPARIN 40 MG/0.4 ML SYR SC SCH (08:24)
[2016-09-08] MEDS: ROPINIROLE HCL 3 MG PO SCH ×2 (08:24→12:38)
[2016-09-08] MEDS: SENNOSIDES 1 TAB PO SCH (08:25)
[2016-09-08 08:30] VITALS: BP 112/71; PULSE 99; RESP 14
[2016-09-08 08:35] LABS: % IMMATURE GRANULYOCYTES 0.6 % (0.0-1.1); ABSOLUTE IMMATURE GRANULOCYTES 0.05 10^3/uL (0.00-0.10); ADD DIFF? NO; ADD MORPH? NO; ADD SCAN? NO; ATYPICAL LYMPHOCYTE FLAG 0 (0-99); FRAGMENT RBC FLAG 0 (0-99); HEMOGLOBIN 8.3 g/dL (12.6-16.3); LEFT SHIFT FLG 0 (0-99); LIPEMIA HEMOLYSIS FLAG 80 (0-99); MEAN CELL HEMOGLOBIN 29.1 pg (27.9-34.1); MEAN CELL HEMOGLOBIN CONCENTR. 30.7 g/dL (32.4-36.7); MEAN CELL VOLUME 94.7 fL (81.5-99.8); MEAN PLATELET VOLUME 10.3 fL (8.7-11.7); PLATELET CLUMPS FLAG 0 (0-99); PLATELET COUNT 286 10^3/uL (150-400); RED BLOOD CELL COUNT 2.85 10^6/uL (4.18-5.33)
--- NOTE | 2016-09-19 16:11 | GDS ---
[f rep st] DISCHARGE SUMMARY ADMISSION DIAGNOSIS: Right hip fracture, status post hemiarthroplasty. DISCHARGE DIAGNOSIS: Right hip fracture, status post hemiarthroplasty. OTHER DISCHARGE DIAGNOSIS: Parkinson disease. CONSULTATIONS: There were none. COMPLICATIONS: There were none. HISTORY/HOSPITAL COURSE: The patient was admitted from [facility] where she had been treated for a right hip fracture. She had an ORIF on 09/03/2016 and was medically stabilized and appropriate for inpatient rehabilitation. She had steady improvement in function. Her initial functional independence measure was 64 on 08/30/2016, consistent with needing assistance with mobility and activities of daily living at [facility] prison level. It had improved to 75 as of 09/06/2016. This was still consistent with prison level of care but close to assisted living level. She had been able to walk 300 feet with standby assistance using a 4-wheeled walker or a front-wheeled walker. She was able to climb and descend 3 steps with 1 rail with contact guard assist. She required maximal assistance for lower body dressing and toileting, especially with clothing management. Regarding Parkinson disease, she came to inpatient rehabilitation on ropinirole and Sinemet. Whether dose titration would improve her function was discussed with her primary neurologist, Dr. Jennifer Suárez and Sinemet CR was increased from 0.5 mg to 0.75 mg in the morning. Other doses were not changed. The morning dose was given 30-40 minutes before ADLs. Prior to this change, it took a rather prolonged time for her to accomplish morning activities of daily living. This improved after dose adjustment. She presented to the inpatient rehabilitation unit with a radial nerve palsy on the left upper extremity. She had a wrist drop. It was unclear whether or not this had resulted from compression during surgery or after her fall; it was expected to improve in 3-4 weeks. If it does not improve, she was advised to follow up with Neurology to consider nerve conduction studies. She was noted to have urinary retention. She had been treated with midodrine for orthostatic hypotension. This was discontinued and urinary retention improved. Fludrocortisone had been initiated as well, and this was continued. There was an episode of acute tremulousness and reduced function on 09/04/2016. This is when urinary retention was discovered. She had retained 700 cc. These symptoms resolved with bladder catheterization. LABORATORY AND STUDIES: During her stay, she had anemia. It was stable during her stay. On 09/08/2016, her hemoglobin was 8.3 and her hematocrit was 27. A D -dimer was tested when she had acute symptoms of tremulousness and decreased function. It was elevated at 2.57; however, there was nothing else going on to suggest deep venous thrombosis or pulmonary embolus, and she had been maintained on prophylactic enoxaparin, so further evaluation to rule out these possible etiologies was not pursued after symptoms resolved. The elevated D- dimer was most likely due to her recent surgery. A CMP was obtained on 2016. Renal function and electrolytes as well as liver functions were all within normal limits but for a slightly low total protein of 6.0. She had a urinalysis also on 09/04/2016, and it was completely within normal limits. DISCHARGE PLAN: CONDITION UPON DISCHARGE: Good. ACTIVITY: Ad aubrey, but she continues to benefit from standby assistance with mobility related ADLs and ambulation and needs assistance for clothing management with lower body dressing and toileting. DIET: Regular. DATE OF NEXT APPOINTMENT: She had followup scheduled when she discharged with her primary neurologist, Dr. Jennifer Suárez on 09/12/2016; with her primary care provider, Dr. Bonnie Zepeda in approximately 2 weeks from the day of discharge; and with orthopedic surgeon, Dr. Cami Dumont on 09/12/2016. ISSUES TO BE ADDRESSED AT FOLLOWUP: 1. Functional status. She will have home care with a registered nurse, PT/OT, speech and language pathology and a HANG[employer]. She can follow up with her neurologist and with her primary care provider regarding these services and her progress. 2. Left radial nerve palsy. If this does not resolve, she should follow up with Neurology and consider nerve conduction studies. 3. Parkinson's disease. She had some titration of her Sinemet CR during her stay, and she will see her primary neurologist, Dr. Suárez, regarding further dose adjustments. 4. Likely osteoporosis. She should consider bone density testing with her primary care provider after discharge. MEDICATIONS AT DISCHARGE: 1. Sinemet CR 3/4 of a tab daily at 0730, 1/2-tab daily at 11 o'clock, 2 o' clock and 5 o'clock and 1/2-tab at h.s. 2. Sinemet immediate release 1/4-tab p.o. t.i.d. 3. Cholecalciferol 2000 units p.o. daily. 4. Clozapine 25 mg p.o. b.i.d. 5. Fludrocortisone 0.1 mg p.o. daily. 6. Sodium chloride 1000 mg p.o. b.i.d. 7. Ropinirole 3 mg twice daily at 9 o'clock and 12 o'clock and 2 mg at h.s. 8. Tramadol 25 mg p.o. q.6 hours. /[id number]/MODL MTDD
== END 2016-09-08 13:15 | disposition home or self-care (01) | DRG 560 ==
LOC: BREH 14:57
PROVIDERS: ADMIT Physical Medicine & Rehabilitation; ATTEND Internal Medicine
DX: Z47.1 Aftercare following joint replacement surgery (principal); S72.001D Fracture of unspecified part of neck of right femur, subsequent encounter for closed fracture with routine healing; G20 Parkinson's disease; W19.XXXD Unspecified fall, subsequent encounter; M81.0 Age-related osteoporosis without current pathological fracture; R44.3 Hallucinations, unspecified; T44.995A Adverse effect of other drug primarily affecting the autonomic nervous system, initial encounter; D64.9 Anemia, unspecified; G56.32 Lesion of radial nerve, left upper limb; S54.21 Injury of radial nerve at forearm level, right arm; I95.1 Orthostatic hypotension; L89.152 Pressure ulcer of sacral region, stage 2; R33.9 Retention of urine, unspecified; Z96.641 Presence of right artificial hip joint
CPT/HCPCS: 92507-GN; 92522-GN; 92526-GN; 92610-GN; 97110-GO; 97110-GP; 97116-GP; 97140-GO; 97161-GP; 97166-GO; 97530-GO; 97530-GP; 97535-GO; 99366-GO; J1650

== ENCOUNTER 2016-11-14 13:47 | Emergency (ER) | payer OTHER ==
[2016-11-14 13:57] VITALS: RESP 16
--- NOTE | 2016-11-14 14:24 | EDPHY ---
H & P Stated Complaint: fall from walking, facial pain. md wants to know if pt is orthostatic orNOT Time Seen by Provider: 11/14/16 14:11 HPI/ROS: CHIEF COMPLAINT: The abrasions, fall HISTORY OF PRESENT ILLNESS: The patient is a 71-year-old female with a history of Parkinson's and chronic hypotension who takes Florinef. She has frequent syncopal and pre syncopal events. Today while she was walking to her physical therapy she had a syncopal event and fell to the ground. She has abrasions to the left side of her arm, face and knee. She was sent here for evaluation. She denies headache or neck pain. She denies chest pain or nausea or shortness of breath. She has been ambulatory since the event. REVIEW OF SYSTEMS: Constitutional: denies: chills, fever, recent illness, recent injury EENTM: denies: blurred vision, double vision, nose congestion Respiratory: denies: cough, shortness of breath Cardiac: denies: chest pain, irregular heart rate, lightheadedness, palpitations Gastrointestinal/Abdominal: denies: abdominal pain, diarrhea, nausea, vomiting, blood streaked stools Genitourinary: denies: dysuria, frequency, hematuria, pain Musculoskeletal: denies: joint pain, muscle pain Skin: See HPI Neurological: denies: headache, numbness, paresthesia, tingling, dizziness, weakness Hematologic/Lymphatic: denies: blood clots, easy bleeding, easy bruising Immunologic/allergic: denies: HIV/AIDS, transplant EXAM: GENERAL: Well-appearing, well-nourished and in no acute distress. HEAD: Atraumatic, normocephalic. EYES: Pupils equal round and reactive to light, extraocular movements intact, sclera anicteric, conjunctiva are normal. ENT: TMs normal, nares patent, oropharynx clear without exudates. Moist mucous membranes. NECK: Normal range of motion, supple without lymphadenopathy or JVD. LUNGS: Breath sounds clear to auscultation bilaterally and equal. No wheezes rales or rhonchi. HEART: Regular rate and rhythm without murmurs, rubs or gallops. ABDOMEN: Soft, nontender, normoactive bowel sounds. No guarding, no rebound. No masses appreciated. BACK: No CVA tenderness, no spinal tenderness, step-offs or deformities EXTREMITIES: Normal range of motion, no pitting or edema. No clubbing or cyanosis. NEUROLOGICAL: Cranial nerves II through XII grossly intact. Normal speech, normal gait. 5/5 strength, normal movement in all extremities, normal sensation PSYCH: Normal mood, normal affect. SKIN: Abrasions to left arm, left knee and minimal abrasion to the side of left face. Source: Patient Exam Limitations: No limitations - Personal History Current Tetanus/Diphtheria Vaccine: Yes Current Tetanus Diphtheria and Acellular Pertussis (TDAP): Yes - Medical/Surgical History Hx Asthma: No Hx Chronic Respiratory Disease: No Hx Diabetes: No Hx Cardiac Disease: No Hx Renal Disease: No Hx Cirrhosis: No Hx Alcoholism: No Hx HIV/AIDS: No Hx Splenectomy or Spleen Trauma: No Other PMH: PARKINSON, hysterectomy, knee surgery, frequent falls over the last 12 months, broken L wrist - Family History Significant Family History: No pertinent family hx - Social History Smoking Status: Never smoked Alcohol Use: Sober Drug Use: None Constitutional: Initial Vital Signs Temperature (C) 36.6 C 11/14/16 13:54 Heart Rate 100 11/14/16 13:54 Respiratory Rate 16 11/14/16 13:54 Blood Pressure 101/52 L 11/14/16 13:54 O2 Sat (%) 92 11/14/16 13:54 O2 Delivery Mode Room Air Allergies/Adverse Reactions: Sulfa (Sulfonamide Antibiotics) Allergy (Verified 05/30/15 19:48) Home Medications: Medication Instructions Recorded Herbals/Supplements -Info Only 1 ea PO DAILY 05/30/15 Acetaminophen [Tylenol ES 500 mg 1,000 mg PO TID #0 tab 09/07/16 (*)] Carbidopa/Levo Cr 25/100Mg 0.5 tab PO 1100,1400,1700 #60 09/07/16 [Sinemet CR 25/100 MG (*)] tab.cr Carbidopa/Levo Cr 25/100Mg 0.5 tab PO HS #30 tab.cr 09/07/16 [Sinemet CR 25/100 MG (*)] Carbidopa/Levo Cr 25/100Mg 0.75 tab PO 0730 #30 tab.cr 09/07/16 [Sinemet CR 25/100 MG (*)] Carbidopa/Levodopa 25/100Mg 0.25 tab PO TID PRN #10 tab 09/07/16 [Sinemet 25/100 MG (*)] Cholecalciferol Vit D3 [Vitamin D3 2,000 units PO DAILY #0 each 09/07/16 2000 units tab (OTC)] Fludrocortisone Acetate [Florinef] 0.1 mg PO DAILY #30 tab 09/07/16 Sodium Chloride [Salt Tablet] 1,000 mg PO BIDMEAL #60 tab 09/07/16 cloZAPine [Clozaril (*)] 25 mg PO BID #30 tab 09/07/16 rOPINIRole HCL [Ropinirole ER] 2 mg PO HS #30 tab.er.24h 09/07/16 rOPINIRole HCL [Ropinirole ER] 3 mg PO BID@09,12 #60 tab.er.24h 09/07/16 traMADol [Ultram 50 mg (*)] 25 mg PO Q6HRS #30 tab 09/07/16 Medical Decision Making ED Course/Re-evaluation: The patient has minor abrasions were cleaned and dressed appropriately. She declines workup. I agree that this is appropriate. I do not suspect head injury or fractures. She has chronic hypotension and frequently faints. She declines workup for fainting. She is on Florinef in her doctor is planning to increase this because of her frequent episodes. I will leave this to them. At this point the patient is eager to go home and declines any further treatment. Differential Diagnosis: Partial list of the Differential diagnosis considered include but were not limited to; abrasions, syncope, hypertension, Parkinson's and although unlikely based on the history and physical exam, I also considered head injury, fracture, infection, acute coronary disease, arrhythmia. I discussed these differential diagnoses and the plan with the patient as well as the usual and expected course. The patient understands that the diagnosis is provisional and that in medicine we are not always correct and that further workup is often warranted. Usual and customary warnings were given. All of the patient's questions were answered. The patient was instructed to return to the emergency department should the symptoms at all worsen or return, otherwise to followup with the physician as we discussed. Departure - Departure Disposition: Home, Routine, Self-Care Clinical Impression: Syncope Qualifiers: Syncope type: vasovagal syncope Qualified Code(s): R55 - Syncope and collapse Abrasion head Qualifiers: Encounter type: initial encounter Qualified Code(s): S00.91XA - Abrasion of unspecified part of head, initial encounter Condition: Fair Instructions: Syncope (ED), Abrasion (ED) Referrals: Bonnie Zepeda MD [Primary Care Provider] - As per Instructions
[2016-11-14 14:52] VITALS: BP 133/74; PULSE 81; TEMP 97.7; O2SAT 95
== END 2016-11-14 14:52 | disposition home or self-care (01) ==
DX: S00.91XA Abrasion of unspecified part of head, initial encounter (principal); R55 Syncope and collapse; G20 Parkinson's disease; W19.XXXA Unspecified fall, initial encounter; Y99.8 Other external cause status; Y93.01 Activity, walking, marching and hiking

== ENCOUNTER → 2016-11-28 | Outpatient (CLI) | payer OTHER | LOC: FIMAGING 11:53 | PROVIDERS: ATTEND Physical Medicine & Rehabilitation | DX: G20 Parkinson's disease (principal); R26.89 Other abnormalities of gait and mobility; R41.89 Other symptoms and signs involving cognitive functions and awareness; I67.2 Cerebral atherosclerosis ==

== ENCOUNTER 2016-12-12 19:36 | Emergency (ER) | payer OTHER ==
[2016-12-12] MEDS ORDERED: LET GEL TOPICAL 1 EA SYR TP ONE (20:27)
--- NOTE | 2016-12-12 20:32 | EDPHY ---
H & P Smoking Status: Never smoked Time Seen by Provider: 12/12/16 20:17 HPI/ROS: CHIEF COMPLAINT: Laceration HISTORY OF PRESENT ILLNESS: This is a 71-year-old male presenting to the emergency department, reports carring glass platter when her foot caught a rug on the floor patient tripped and fell breaking platter hitting her face on the floor. Patient states due to her Parkinson's disease she often trips. Denies any LOC, patient's helped her up noticed few lacerations to her face and hand. Denies any other injuries. Patient states tetanus up-to-date 3-4 years ago REVIEW OF SYSTEMS: Constitutional: No fever, no chills. Eyes: No discharge. No blurred vision ENT: No sore throat. Cardiovascular: No chest pain, no palpitations. Respiratory: No cough, no shortness of breath. Gastrointestinal: No abdominal pain, no vomiting. Musculoskeletal: No back pain. Right hand pain due to small laceration Skin: facial lacerations Neurological: No headache. (Adrianna Matute) Physical Exam: General Appearance: Alert, no distress. Non ill-appearing Head/Eyes: Normocephalic. As 1 cm superficial laceration above right eyebrow. 1 cm superficial laceration noted to right side of cheek. Pupils equal and round no pallor or injection. ENT, Mouth: Mucous membranes moist. No oral injuries no malocclusion Respiratory: There are no retractions, lungs are clear to auscultation. Cardiovascular: Regular rate and rhythm. Gastrointestinal: Abdomen is soft and nontender, no masses, bowel sounds normal. Neurological: No focal deficits. Answering questions appropriately Skin: Warm and dry Musculoskeletal: Vertebral cervical spine nontender on palpation full range of motion Extremities: Superficial 0.05 cm laceration right palm no tendon involvement full range of motion. Psychiatric: Patient is oriented X 3, there is no agitation, acting appropriately (Adrianna Matute) Constitutional: Initial Vital Signs Temperature (C) 36.3 C 12/12/16 19:53 Heart Rate 87 12/12/16 19:53 Respiratory Rate 19 12/12/16 19:53 Blood Pressure 143/78 H 12/12/16 19:53 O2 Sat (%) 96 12/12/16 19:53 O2 Delivery Mode Room Air Allergies/Adverse Reactions: Sulfa (Sulfonamide Antibiotics) Allergy (Verified 05/30/15 19:48) Home Medications: Medication Instructions Recorded Herbals/Supplements -Info Only 1 ea PO DAILY 05/30/15 Carbidopa/Levodopa 25/100Mg 0.25 tab PO TID PRN #10 tab 09/07/16 [Sinemet 25/100 MG (*)] Cholecalciferol Vit D3 [Vitamin D3 2,000 units PO DAILY #0 each 09/07/16 2000 units tab (OTC)] Fludrocortisone Acetate [Florinef] 0.1 mg PO DAILY #30 tab 09/07/16 cloZAPine [Clozaril (*)] 25 mg PO BID #30 tab 09/07/16 rOPINIRole HCL [Ropinirole ER] 2 mg PO HS #30 tab.er.24h 09/07/16 rOPINIRole HCL [Ropinirole ER] 3 mg PO BID@09,12 #60 tab.er.24h 09/07/16 Medical Decision Making Procedures: TheProcedure: Laceration repair. Verbal consent was obtained from the patient and family. 1 cm superficial laceration above right eyebrow and 1 cm superficial laceration right cheek. 1% xylocaine total amount to 2mL local infiltrate. Both wounds were irrigated. There were no deep structures involved. Both wounds were repaired using Dermabond and Steri-Strips. The procedure was performed by myself. A dressing was applied by our EMT. (Adrianna Matute) ED Course/Re-evaluation: Discussed ED plan of care: LET placed , wound irrigation 2044: Patient is concerned that they were going to make it in home in time to get her 9 o'clock Parkinson's meds, requested we give those doses here. Meds ordered (Adrianna Matute) I did not see this patient while she was here in the emergency department. However her care was discussed with the nurse practitioner while the patient was in the department. I agree with treatment plan and management (Stephon Madrid) Differential Diagnosis: Other differential diagnosis considered but not limited to concussion, syncope, foreign body, and metacarpal fracture (Adrianna Matute) - Data Points Medications Given: Discontinued Medications Carbidopa/Levodopa (Sinemet) 1 tab PO ONCE ONE Stop: 12/12/16 21:09 Last Admin: 12/12/16 21:50 Dose: 1 tab Ropinirole HCl (Requip) 2 mg PO TID ISMAEL Stop: 06/10/17 21:59 Last Admin: 12/12/16 21:50 Dose: 2 mg Tetracaine/Epinephrine/Lidocaine (Let Gel Topical) 1 ea TP EDNOW ONE Stop: 12/12/16 20:28 Last Admin: 12/12/16 20:39 Dose: 1 ea Departure - Departure Disposition: Home, Routine, Self-Care Clinical Impression: Laceration Condition: Good Instructions: Laceration (ED), Skin Adhesive Care (ED) Additional Instructions: 1. Do not pull or pick derma virk her Steri-Strips. You can shower after 24 hours do not scrub the areas 2. Monitor for any signs of infection, such as: Redness, swelling, red streak , pus 3. Ice pack to forehead as needed for any swelling 4. Monitor for any changes in her mental status if this should occur return to the ER 5. Follow up with her primary care provider this week Referrals: Bonnie Zepeda MD [Primary Care Provider] - As per Instructions
[2016-12-12] MEDS ORDERED: CARBIDOPA/LEVODOPA 25 MG/100 MG TAB PO ONE (21:08)
[2016-12-12] MEDS ORDERED: SKIN ADHESIVE (DERMABOND) 1 EACH TP ONE (21:57)
[2016-12-12 22:34] VITALS: BP 128/59; PULSE 74; RESP 16; TEMP 98.2; O2SAT 95
== END 2016-12-12 22:34 | disposition home or self-care (01) ==
PROC: 0HQ1XZZ Repair Face Skin, External Approach (ICD-10-PCS; principal; 2016-12-12)
DX: S01.81XA Laceration without foreign body of other part of head, initial encounter (principal); S01.411A Laceration without foreign body of right cheek and temporomandibular area, initial encounter; G20 Parkinson's disease; W01.198A Fall on same level from slipping, tripping and stumbling with subsequent striking against other object, initial encounter

== ENCOUNTER → 2017-04-26 | Outpatient (CLI) | payer OTHER | LOC: BMCIMAGING 14:17 | PROVIDERS: ATTEND Physician Assistant Medical | DX: M25.551 Pain in right hip (principal); Z96.641 Presence of right artificial hip joint ==

== ENCOUNTER → 2017-08-14 | Outpatient (CLI) | payer OTHER, MEDICARE | LOC: BMCIMAGING 10:05 | PROVIDERS: ATTEND Nurse Practitioner Adult Health | DX: M25.561 Pain in right knee (principal); W19.XXXA Unspecified fall, initial encounter ==

== ENCOUNTER 2017-09-23 13:28 | Emergency (ER) | payer OTHER, MEDICARE ==
--- NOTE | 2017-09-23 14:39 | EDPHY ---
HPI/HX/ROS/PE/MDM Narrative: CHIEF COMPLAINT: Left eye irritation HPI: The patient is a 72 y/o female with a history of Parkinson's Disease and frequent falls complaining of left eye irritation. Around 6 months ago she fell and subsequently hit her face. At this time they preformed a CT and MRI scan with no findings of a broken facial bone. Around 3 months ago she started to feel like there was a bone fragment moving around in the lateral aspect of her left eye. For the past several weeks this irritation has increased as well as an increase in eye watering. Denies recent trauma or injury. Denies chest pain, shortness of breath, abdominal pain, numbness, paresthesias, fever. REVIEW OF SYSTEMS: Aside from elements discussed in the HPI, a comprehensive 10-point review of systems was reviewed and is negative. PMH: Parkinson's Disease, hysterectomy, knee surgery, frequent falls SOCIAL HISTORY: at bedside, lives in [place], retired PHYSICAL EXAM: General: Patient is alert, has general tremor due to Parkinson's, in no acute distress. ENT: 2 raised hard bumps on lateral aspect of left eyebrow. Eyes are normal to inspection, PERRLA. ENT inspection normal. Neck: Normal inspection. Full range of motion. Respiratory: No respiratory distress. Breath sounds normal bilaterally. Cardiovascular: Regular rate and rhythm. Strong peripheral pulses. Normal cap refill. Abdomen: The abdomen is nontender to palpation. There are no peritoneal signs. There are normal bowel sounds. Back: Normal to inspection. No tenderness to palpation. Skin: Normal color. No rash. Warm and dry. Extremities: Normal appearance. Full range of motion. Neuro: Oriented x3. Normal motor function. Normal sensory function. ED Course: 1540: I reviewed patient's orbit x-ray; radiologist reading still pending. 1558: Reassessed patient and discussed negative imaging findings. Patient's symptoms are consistent with a skin lesion. I have recommended a dermatology follow up within the next week. Return precautions provided; patient is comfortable with this plan. MDM: This patient presents with two small dense nodules on her left eyebrow. There is no ocular involvement. Patient is worried these represent bony frangments from a fall she sustained 6 months ago. XR of orbits shows no sign of bony FB. I suspect this is likely a dermatologic issue. I see no indication for advanced imaging or I/D at this time. I do not think this represents abscess or cellulitis. - Data Points Imaging Results: Imaging Impressions Orbit X-Ray 09/23/17 14:46 Impression: Negative. No evidence of foreign body. Imaging: I viewed and interpreted images myself General Time Seen by Provider: 09/23/17 14:38 Initial Vital Signs: Initial Vital Signs Temperature (C) 36.7 C 09/23/17 13:40 Heart Rate 98 09/23/17 13:40 Respiratory Rate 17 09/23/17 13:40 Blood Pressure 111/81 H 09/23/17 13:40 O2 Sat (%) 93 09/23/17 13:40 O2 Delivery Mode Room Air Allergies/Adverse Reactions: Sulfa (Sulfonamide Antibiotics) Allergy (Verified 09/23/17 13:39) Home Medications: Medication Instructions Recorded Herbals/Supplements -Info Only 1 ea PO DAILY 05/30/15 Carbidopa/Levodopa 25/100Mg 0.25 tab PO TID PRN #10 tab 09/07/16 [Sinemet 25/100 MG (*)] Cholecalciferol Vit D3 [Vitamin D3 2,000 units PO DAILY #0 each 09/07/16 2000 units tab (OTC)] Fludrocortisone Acetate [Florinef] 0.1 mg PO DAILY #30 tab 09/07/16 cloZAPine [Clozaril (*)] 25 mg PO BID #30 tab 09/07/16 rOPINIRole HCL [Ropinirole ER] 2 mg PO HS #30 tab.er.24h 09/07/16 rOPINIRole HCL [Ropinirole ER] 3 mg PO BID@,12 #60 tab.er.24h 09/07/16 Vitamin B-12 09/23/17 Departure - Departure Disposition: Home, Routine, Self-Care Clinical Impression: Skin lesion of face Condition: Good Instructions: Abscess (ED) Additional Instructions: Follow up with a cinder man within one week. Return to the Emergency Department for fever, redness, discharge from lesion, vision changes, increasing pain or other worsening of condition. Referrals: Bonnie Zepeda MD [Primary Care Provider] - As per Instructions Kirsten Whittington [Doctor of Osteopathy] - As per Instructions Report Scribed for: Breezy Bautista Report Scribed by: Sylvie Calhoun Date of Report: 09/23/17 Time of Report: 14:38 Physician Review and Approval Statement: Portions of this note were transcribed by an ED scribe. I personally performed the history, physical exam, and medical decision making; and confirm the accuracy of the information in the transcribed note.
[2017-09-23 16:19] VITALS: BP 150/90
== END 2017-09-23 16:19 | disposition home or self-care (01) ==
DX: L98.9 Disorder of the skin and subcutaneous tissue, unspecified (principal); G20 Parkinson's disease

== ENCOUNTER 2017-11-02 20:23 | Emergency (ER) | payer OTHER, MEDICARE ==
--- NOTE | 2017-11-02 20:26 | EDPHY ---
H & P Time Seen by Provider: 11/02/17 20:26 HPI/ROS: CHIEF COMPLAINT: Right wrist pain post mechanical fall HISTORY OF PRESENT ILLNESS: 72-year-old female no anticoagulant use, history of Parkinson's disease, history of a baseline unsteady gait, arrives via ambulance after she sustained a mechanical fall landing on her outstretched right hand. This was witnessed by her who who was holding her hand but was unable to keep her upright and keep her from falling. She did impact her head with no loss of consciousness. No seizure activity. No nausea or vomiting. No headache. No midline C-spine pain. No alcohol or drug use. No abdominal pain or trauma. No back pain or trauma. No chest pain or trauma. This was a purely mechanical non syncopal episode. REVIEW OF SYSTEMS: A ten point review of systems was performed and is negative with the exception of the items mentioned in the HPI PAST MEDICAL/SURGICAL HISTORY: Parkinson's disease. no anticoagulant use, no relevant medical/surgical history SOCIAL HISTORY: denies alcohol use at time of incident . Lives with . PHYSICAL EXAM 1) GENERAL: Well-developed, well-nourished, alert and oriented. Appears to be in no acute distress. Answering questions appropriately. 2) HEAD: Normocephalic, atraumatic. No hematoma or depression. 3) HEENT: Pupils equal, round, reactive to light bilaterally. Negative Horners. Nasopharynx, oropharynx, clear. No deformity or angulation of nose. No septal hematoma. No rhinorrhea. No oral trauma. Ears bilaterally with normal tympanic membranes. No hemotympanum. No fluid or blood in the external auditory canal. No raccoon eyes. No Mccullough sign. Teeth are normally aligned with no gross malocclusion, TMJ bilaterally nontender, facial bones nontender including the zygomatic arch, maxilla mandible. 4) NECK: No cervical collar is on. Posterior cervical spine is nontender, no stepoff, no effusion. Full range of motion which does not elicit any midline cervical spine pain, no posterior midline tenderness, no step-off. 5) LUNGS: Clear to auscultation bilaterally, no wheezes, no rhonchi, no retractions. No obvious signs of trauma. No chest wall pain. No flaring, no grunting. Moving symmetrically. No crepitus. 6) HEART: [Regular rate and rhythm, 7) ABDOMEN: No guarding, no rebound, no focal tenderness, no peritoneal signs, no signs of trauma, no ecchymosis 8) MUSCULOSKELETAL: Right upper extremity: Soft tissue swelling and tenderness to palpation wrist. Radial ulnar median nerve function intact. Soft compartments. Brisk pulses and capillary refill. Otherwise, Moving all extremities, no focal areas of tenderness, no obvious trauma. 9) BACK: No midline vertebral tenderness, no fluctuance, no step-off, no obvious trauma, no visual or palpable abnormality. 10) SKIN: No laceration. No abrasion DIFFERENTIAL DIAGNOSIS: In no particular order including but not limited to open fracture, closed fracture, compartment syndrome - Medical/Surgical History Hx Asthma: No Hx Chronic Respiratory Disease: No Hx Diabetes: No Hx Cardiac Disease: No Hx Renal Disease: No Hx Cirrhosis: No Hx Alcoholism: No Hx HIV/AIDS: No Hx Splenectomy or Spleen Trauma: No Other PMH: PARKINSON, hysterectomy, knee surgery, frequent falls over the last 12 months, broken L wrist - Social History Smoking Status: Never smoked Constitutional: Initial Vital Signs Temperature (C) 36.4 C 11/02/17 20:31 Heart Rate 84 11/02/17 20:31 Respiratory Rate 16 11/02/17 20:31 Blood Pressure 153/84 H 11/02/17 20:31 O2 Sat (%) 97 11/02/17 20:31 O2 Delivery Mode Room Air Allergies/Adverse Reactions: Sulfa (Sulfonamide Antibiotics) Allergy (Verified 09/23/17 13:39) Home Medications: Medication Instructions Recorded Herbals/Supplements -Info Only 1 ea PO DAILY 05/30/15 Carbidopa/Levodopa 25/100Mg 0.25 tab PO TID PRN #10 tab 09/07/16 [Sinemet 25/100 MG (*)] Cholecalciferol Vit D3 [Vitamin D3 2,000 units PO DAILY #0 each 09/07/16 2000 units tab (OTC)] Fludrocortisone Acetate [Florinef] 0.1 mg PO DAILY #30 tab 09/07/16 cloZAPine [Clozaril (*)] 25 mg PO BID #30 tab 09/07/16 rOPINIRole HCL [Ropinirole ER] 2 mg PO HS #30 tab.er.24h 09/07/16 rOPINIRole HCL [Ropinirole ER] 3 mg PO BID@ #60 tab.er.24h 09/07/16 Vitamin B-12 09/23/17 Clonazepam 11/02/17 Folic Acid 11/02/17 Medical Decision Making Procedures: 9:50 p.m. Procedure: Fracture reduction Indication: Fracture of the right distal radius Indications, risks and benefits discussed with patient and consent obtained. A hematoma block of 0.5% bupivicaine placed by myself. After the area was Traction and countertraction applied achieving a visible and palpable reduction. After reduction on the patient's dorsal wrist she had a noted skin tear measuring 4 cm was which was not previously present. I think this more than likely occurred secondary to direct pressure. There are no osseous fragments involved and the fascial layer was intact. I discussed this with the patient and her . I apologized for this. I informed them that I would speak with orthopedic surgeon regarding this. I discussed this with secondary supervising physician Dr Hinton in ER. See consultation note with Orthopedics at 10:00 p.m. 10:19 p.m. Procedure: Wound repair. I explained the indications, risks and benefits for both laceration repair and anesthetic administration. Verbal consent was obtained from the patient. The laceration on the right dorsal wrist was anesthetized using 0.5% bupivicaine with epinephrine. After anesthetic administered the patient was observed for a period of time and had no apparent adverse effects. The wound was cleaned, prepped, draped in normal sterile fashion and explored to its base. No foreign body seen, no foreign bodies palpated. There were no deep structures involved. No tendon injury was identified. Skin edges were reapproximated with 4 simple interrupted 5 O Prolene sutures. ]. The wound repair was simple. The procedure was performed by myself. Patient has been informed that scarring will occur, although efforts have been made to minimize this. 10:30 p.m. Procedure: Splint In Ortho Glass sugar-tong splint was applied by ER electronics warfare technician. After application of the splint I returned and re-examined the patient. The splint was adequately immobilizing the joint and distal to the splint the patient's circulation and sensation were intact. Patient shows no signs of compartment syndrome. Was given orthopedic precautions. ED Course/Re-evaluation: 8:36 p.m.: Head CT ordered in this patient for trauma for the following indication: Greater than 65 years old 10:00 p.m.: Phone consultation with Dr. Adriel Godoy. Discussed the clinical findings. This patient has a superficial skin tear which occurred during the proces of reduction. The fascial layers intact. I discussed with Dr. Adriel Godoy whether this could represent open fracture I think that this less than likely represents an open fracture specially given the x-ray findings. He recommended wound closure, follow up in the office on Sunday, today is Sunday. - Data Points Medications Given: Discontinued Medications Hydrocodone Bitart/Acetaminophen ([place] 5/325mg Prepack#6) 1 btl TAKEHOME EDNOW ONE Stop: 11/02/17 22:42 Last Admin: 11/02/17 22:47 Dose: 1 btl Departure - Departure Disposition: Home, Routine, Self-Care Clinical Impression: Head injury due to trauma, Parkinsons disease, Tear of skin of right wrist, Distal radius fracture, Ulna distal fracture Condition: Good Instructions: Hydrocodone/Acetaminophen (By mouth), Wrist Fracture in Adults ( ED), Head Injury (ED), Skin Tear (ED) Additional Instructions: Return to the ER immediately if you experience discoloration, have worsening pain, numbness, tingling, or any other symptoms that concern you. If you received x-rays in the emergency department today, be advised, that ligamentous , tendon, muscular, and other non-bony injury cannot be fully ruled out. [Try to keep your affected extremity elevated above the level of your chest, and keep cold packs on the affected area, for the next 48 hours.] Referrals: Adriel Godoy MD [Medical Doctor] - As per Instructions
[2017-11-02] MEDS ORDERED: HYDROCOD/APAP 5/325 PREPACK#6 BTL TAKEHOME ONE (22:41)
[2017-11-02 23:56] VITALS: BP 144/83
== END 2017-11-02 23:56 | disposition home or self-care (01) ==
LOC: EDUNIT#
PROC: 0PSHXZZ Reposition Right Radius, External Approach (ICD-10-PCS; principal; 2017-11-02)
PROC: 0HQDXZZ Repair Right Lower Arm Skin, External Approach (ICD-10-PCS; principal; 2017-11-02)
DX: S52.571A Other intraarticular fracture of lower end of right radius, initial encounter for closed fracture (principal); S52.611A Displaced fracture of right ulna styloid process, initial encounter for closed fracture; S61.511A Laceration without foreign body of right wrist, initial encounter; S09.90XA Unspecified injury of head, initial encounter; G20 Parkinson's disease; W18.39XA Other fall on same level, initial encounter
CPT/HCPCS: 12002; 25605; 70450; 73110; 99284; A4565

== ENCOUNTER 2017-11-04 16:51 | Emergency (ER) | payer OTHER, MEDICARE ==
--- NOTE | 2017-11-04 18:44 | EDPHY ---
H & P Time Seen by Provider: 11/04/17 17:46 HPI/ROS: CHIEF COMPLAINT: Forearm bleeding HISTORY OF PRESENT ILLNESS: Patient seen Sunday evening after mechanical fall secondary to Parkinson's disease and frequent falls. She was diagnosed with wrist fracture. She states she sustained a wound, skin tear, during reduction and splinting. She returns today after another mechanical fall where she banged her right arm again. She noticed some blood from the dressing. She denies loss of consciousness, neck pain, back pain. No increased pain to the wrist. Has not followed up with Orthopedics yet but plans to on Sunday. Contents of 10 point review of systems otherwise negative except for what is mentioned in HPI. General Appearance: Alert, no distress. Eyes: Pupils equal and round no icterus Respiratory: No respiratory distress Neurological: Awake, alert, no focal deficits. Skin: Warm and dry, no rashes. Musculoskeletal: Neck is supple nontender. Removed splint on right forearm. Laceration repair intact with some scant bleeding. Area is ecchymotic with some edema. Psychiatric: Patient is oriented X 3, there is no agitation. Medical/surgical history: Parkinson's, frequent falls, orthopedic surgeries, hysterectomy. Social history: Nonsmoker Smoking Status: Never smoked Constitutional: Initial Vital Signs Temperature (C) 36.5 C 11/04/17 16:55 Heart Rate 100 11/04/17 16:55 Respiratory Rate 16 11/04/17 16:55 Blood Pressure 103/75 11/04/17 16:55 O2 Sat (%) 95 11/04/17 16:55 O2 Delivery Mode Room Air Allergies/Adverse Reactions: Sulfa (Sulfonamide Antibiotics) Allergy (Verified 11/04/17 16:55) Home Medications: Medication Instructions Recorded Herbals/Supplements -Info Only 1 ea PO DAILY 05/30/15 Carbidopa/Levodopa 25/100Mg 0.25 tab PO TID PRN #10 tab 09/07/16 [Sinemet 25/100 MG (*)] Cholecalciferol Vit D3 [Vitamin D3 2,000 units PO DAILY #0 each 09/07/16 2000 units tab (OTC)] Fludrocortisone Acetate [Florinef] 0.1 mg PO DAILY #30 tab 09/07/16 cloZAPine [Clozaril (*)] 25 mg PO BID #30 tab 09/07/16 rOPINIRole HCL [Ropinirole ER] 2 mg PO HS #30 tab.er.24h 09/07/16 rOPINIRole HCL [Ropinirole ER] 3 mg PO BID@09,12 #60 tab.er.24h 09/07/16 Vitamin B-12 09/23/17 Clonazepam 11/02/17 Folic Acid 11/02/17 Medical Decision Making - Diagnostics Imaging Results: Imaging Impressions Forearm X-Ray 11/04/17 17:58 Impression: Probable increased displacement of the distal radial fracture following a recent fall. Imaging: I viewed and interpreted images myself Differential Diagnosis: Differential diagnosis includes but is not limited to new fracture, new open fracture, dehiscence of sutured wound. After evaluation patient with likely some movement in the fracture fragments although has not yet followed up with Orthopedics and will likely need operative intervention for definitive repair. Wound was intact with no infection or dehiscence and only scant bleeding. Wound was cleaned and redressed. Plan is for follow-up with Orthopedics on Sunday. No other injuries identified. Stable for discharge. Departure - Departure Disposition: Home, Routine, Self-Care Clinical Impression: Visit for wound check Wrist fracture, right Qualifiers: Encounter type: sequela Fracture type: closed Qualified Code(s): S62.101S - Fracture of unspecified carpal bone, right wrist, sequela Condition: Good Instructions: Wrist Fracture in Adults (ED) Additional Instructions: Follow-up as discussed with Dr. Godoy, orthopedics. Return to the emergency department for any concerns of infection. Referrals: Adriel Godoy MD [Medical Doctor] - As per Instructions
[2017-11-04 19:03] VITALS: BP 91/61
== END 2017-11-04 19:02 | disposition home or self-care (01) ==
DX: S62.101D Fracture of unspecified carpal bone, right wrist, subsequent encounter for fracture with routine healing (principal); G20 Parkinson's disease; W18.39XD Other fall on same level, subsequent encounter

== ENCOUNTER 2017-11-07 05:35 | Emergency (ER) | payer OTHER, MEDICARE ==
[2017-11-07 05:44] VITALS: BP 142/78
--- NOTE | 2017-11-07 05:59 | EDPHY ---
H & P Stated Complaint: wrist surgery yesterday- took off splint Time Seen by Provider: 11/07/17 05:51 HPI/ROS: HPI The patient presents postoperative day 1 from ORIF of distal radius fracture by Dr. Godoy, she has removed her splint sometime overnight. realized this this morning and brought her in for evaluation. It is unclear why she removed the splint. She does not have any pain, drainage from incision sites, numbness or tingling. They have the splint with them currently. REVIEW OF SYSTEMS Constitutional: No fever, no chills. Skin: No rashes. Neurological: No headache. PMHx: History of Parkinson's disease Soc Hx: Here with her FHx: PHYSICAL General Appearance: Alert, no distress Eyes: Pupils equal and round no pallor or injection ENT, Mouth: Mucous membranes moist Respiratory: Breathing comfortably Neurological: A&O, moves all extremities Skin: Warm and dry, no rashes Musculoskeletal: Neck is supple non tender Extremities: Right wrist with bandage in place with small amount of dried blood on the dressing, fingers are ecchymotic though just mildly edematous with full range of motion, there is brisk cap refill to her fingers. Psychiatric: there is no agitation Source: Family Exam Limitations: Physical impairment - Medical/Surgical History Hx Asthma: No Hx Chronic Respiratory Disease: No Hx Diabetes: No Hx Cardiac Disease: No Hx Renal Disease: No Hx Cirrhosis: No Hx Alcoholism: No Hx HIV/AIDS: No Hx Splenectomy or Spleen Trauma: No Other PMH: PARKINSON, hysterectomy, knee surgery, frequent falls over the last 12 months, L[place]AND broken wrist - Social History Smoking Status: Never smoked Constitutional: Initial Vital Signs Temperature (C) 37.1 C 11/07/17 05:42 Heart Rate 104 H 11/07/17 05:42 Respiratory Rate 20 11/07/17 05:42 Blood Pressure 142/78 H 11/07/17 05:42 O2 Sat (%) 95 11/07/17 05:42 O2 Delivery Mode Room Air Allergies/Adverse Reactions: Sulfa (Sulfonamide Antibiotics) Allergy (Verified 11/07/17 05:42) Home Medications: Medication Instructions Recorded Herbals/Supplements -Info Only 1 ea PO DAILY 05/30/15 Carbidopa/Levodopa 25/100Mg 0.25 tab PO TID PRN #10 tab 09/07/16 [Sinemet 25/100 MG (*)] Cholecalciferol Vit D3 [Vitamin D3 2,000 units PO DAILY #0 each 09/07/16 2000 units tab (OTC)] Fludrocortisone Acetate [Florinef] 0.1 mg PO DAILY #30 tab 09/07/16 cloZAPine [Clozaril (*)] 25 mg PO BID #30 tab 09/07/16 rOPINIRole HCL [Ropinirole ER] 2 mg PO HS #30 tab.er.24h 09/07/16 rOPINIRole HCL [Ropinirole ER] 3 mg PO BID@09,12 #60 tab.er.24h 09/07/16 Vitamin B-12 09/23/17 Clonazepam 11/02/17 Folic Acid 11/02/17 Medical Decision Making - Diagnostics Imaging Results: X-ray wrist two view shows no obvious new fracture, hardware in place, interpreted by me, radiology interpretation is pending. Differential Diagnosis: 72-year-old female postoperative day 1 from ORIF right wrist due to distal radius fracture with history of Parkinson's disease presents after removing her splint sometime overnight. On exam, she is neurovascularly intact with minimal swelling of her digits and mild ecchymoses, to be expected. Plan for replacing splint and placing a bulky dressing on this to make sure it does not come off easily. I will get an x-ray to make sure she has not re- injured her wrist. X-rays were unremarkable for any obvious new injury. Her splint was replaced. She will be discharged home. Departure - Departure Disposition: Home, Routine, Self-Care Clinical Impression: Distal radius fracture, right Qualifiers: Encounter type: subsequent encounter Fracture type: closed Fracture morphology : unspecified fracture morphology Fracture healing: with routine healing Qualified Code(s): S52.501D - Unspecified fracture of the lower end of right radius, subsequent encounter for closed fracture with routine healing Condition: Good Instructions: Splint Care (ED) Additional Instructions: If she continues to remove her splint, I recommend that you follow up with Dr. Godoy. Referrals: Bonnie Zepeda MD [Primary Care Provider] - As per Instructions Adriel Godoy MD [Medical Doctor] - As per Instructions
== END 2017-11-07 06:35 | disposition home or self-care (01) ==
DX: S52.501D Unspecified fracture of the lower end of right radius, subsequent encounter for closed fracture with routine healing (principal); G20 Parkinson's disease; X58.XXXD Exposure to other specified factors, subsequent encounter